=== PATIENT | male | born 1965 | race American Indian/Alaskan Native ===

== ENCOUNTER 2016-10-05 18:14 | Inpatient (IN) | payer OTHER ==
--- NOTE | 2016-10-05 18:29 | Emergency Department Report ---
Chief Complaint: Chest Pain Stated Complaint: HTN,CHEST PAIN,SOB Time Seen by Provider: 10/05/16 18:25 - HPI History of Present Illness: pt c/o chest pain x a couple of days ago, feels like a tightness PT also reports SOB x a couple of days PT states he has a hx of CHF. pt states he has been out of work so he does not have any of his medication. PT states he has been off of his medication since May - Review of Systems: - edema - orthopnea - Exam Physical Exam: PT looks well, non toxic. PT has steady gait gcs 15 pt is tachycardic MSE screening note: Focused history and physical exam performed. Due to findings the following was ordered: ekg, labs, xr ED Disposition for MSE Condition: Stable
[2016-10-05 19:10] LABS: Basophils % (Auto) 0.9 % (0.0-1.8); Eosinophils % (Auto) 2.5 % (0.0-4.3); Hematocrit 29.6 % (35.5-45.6); Hemoglobin 9.9 gm/dl (11.8-15.2); Mean Corpuscular HGB Conc 34 % (32-34); Mean Corpuscular Hemoglobin 29 pg (28-32); Mean Corpuscular Volume 85 fl (84-94); Platelet Count 343 K/mm3 (140-440); Red Blood Count 3.47 M/mm3 (3.65-5.03); Red Cell Distribution Width 14.1 % (13.2-15.2); White Blood Count 7.6 K/mm3 (4.5-11.0)
[2016-10-05 19:22] LABS: Albumin/Globulin Ratio 0.9 %; Bilirubin,Total 0.2 mg/dL (0.1-1.2); Calcium 7.6 mg/dL (8.4-10.2); Total Protein 6.3 g/dL (6.3-8.2)
[2016-10-05 19:24] LABS: INR 1.05 (0.87-1.13)
[2016-10-05 19:25] LABS: Partial Thromboplastin Time 29.2 Sec. (24.2-36.6)
[2016-10-05] MEDS ORDERED: APRESOLINE IV ONE (20:45)
[2016-10-05] MEDS ORDERED: NITRO-BID 2% TP ONE (20:46)
--- NOTE | 2016-10-05 20:51 | Emergency Department Report ---
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 The patient complained of mild chest discomfort and shortness of breath. Worse with exacerbation. He stated that since May 2016 he lost his job and hasn't been able to afford any of his medication and his blood pressure pills included. He describes chest discomfort as 3 out of 10 pressure-like without radiation exacerbating factors or alleviating factors. ED Past Medical Hx - Past Medical History Previous Medical History?: Yes Hx Hypertension: Yes Hx Congestive Heart Failure: Yes Additional medical history: High cholesterol - Surgical History Past Surgical History?: Yes Hx Appendectomy: Yes Additional Surgical History: tonsillectomy - Social History Smoking Status: Never Smoker Substance Use Type: Prescribed - Medications Home Medications: Home Medications Medication Instructions Recorded Confirmed Last Taken Type AtorvaSTATin [Lipitor] 80 mg PO QHS 10/05/16 10/05/16 Unknown History Carvedilol [Coreg] 25 mg PO BID 10/05/16 10/05/16 Unknown History Furosemide [Lasix TAB] 40 mg PO QDAY 10/05/16 10/05/16 Unknown History ISOSORBIDE MONOnitrate [Imdur ER] 30 mg PO DAILY 10/05/16 10/05/16 Unknown History Lisinopril [Zestril] 20 mg PO QDAY 10/05/16 10/05/16 Unknown History Pravastatin Sodium [Pravastatin] 40 mg PO QHS 10/05/16 10/05/16 Unknown History amLODIPine [Norvasc] 10 mg PO DAILY 10/05/16 10/05/16 Unknown History hydrALAZINE [Apresoline] 50 mg PO Q8HR 10/05/16 10/05/16 Unknown History ED Review of Systems ROS: Stated complaint: HTN,CHEST PAIN,SOB Other details as noted in HPI Comment: All other systems reviewed and negative Cardiovascular: chest pain, dyspnea on exertion Neurological: headache Physical Exam - Physical Exam Vital Signs: Vital Signs 10/05/16 10/05/16 18:27 20:42 Temperature 99.3 F Pulse Rate 116 H 100 H Respiratory 24 15 Rate Blood Pressure 256/160 Blood Pressure 251/170 [Left] O2 Sat by Pulse 100 98 Oximetry Physical Exam: vitals signs reviewed Gen. alert and oriented 3 in no distress Head atraumatic normocephalic Eyes PERR LA EOMI Chest regular rate and rhythm normal S1-S2 lungs clear bilaterally Abdomen soft nondistended Back no point tenderness paravertebral tenderness Neuro no focal deficit. Psych normal mood. ED Course Vital Signs 10/05/16 10/05/16 18:27 20:42 Temperature 99.3 F Pulse Rate 116 H 100 H Respiratory 24 15 Rate Blood Pressure 256/160 Blood Pressure 251/170 [Left] O2 Sat by Pulse 100 98 Oximetry ED Medical Decision Making - Lab Data Result diagrams: 10/05/16 18:45 10/05/16 18:45 Critical care attestation.: If time is entered above; I have spent that time in minutes in the direct care of this critically ill patient, excluding procedure time. ED Disposition Clinical Impression: Hypertensive crisis Disposition: DC-09 OP ADMIT IP TO THIS HOSP Is pt being admited?: Yes Does the pt Need Aspirin: No Condition: Stable Referrals: PRIMARY CARE [Primary Care Provider] - 3-5 Days
[2016-10-05] MEDS ORDERED: CATAPRES PO ONE (22:13)
[2016-10-05] MEDS ORDERED: MILK OF MAGNESIA PO PRN (22:22)
[2016-10-05] MEDS ORDERED: ZOFRAN IV PRN (22:22)
[2016-10-05] MEDS ORDERED: DULCOLAX PR PRN (22:22)
[2016-10-05] MEDS ORDERED: MORPHINE IV PRN (22:22)
[2016-10-05] MEDS ORDERED: TYLENOL PO PRN (22:22)
[2016-10-05] MEDS: CARDENE 50 MG in NACL 0.9% 250ML 230 ML IV SCH (23:07)
--- NOTE | 2016-10-05 23:55 | History and Physical Report ---
History of Present Illness Date of examination: 10/05/16 Date of admission: 10/05/16 22:22 History of present illness: 51-year-old man with a history of hypertension, CHF comes emergency room because his blood pressure was noted to be elevated during a work physical. He was sent to the emergency room for further evaluation. He ran out of his medications four months now. He complaining of chest pain in the epigastric area which he describes as chest tightness, intermittent lasting for a few minutes 2 weeks, intensity 5/10, no radiation any cannot identify exacerbating or relieving factors. He denies nausea vomiting, shortness breath, diaphoresis or palpitation. He had a stress test 2 years ago which was negative Patient denies cough, abdominal pain, hematochezia, dysuria, frequency, focal weakness, dysarthria, fever chills, polydipsia polyuria, hot or cold intolerance , easy bruisability, or rash or bleeding from mucosal membrane, rhinorrhea, epistaxis, earache, tinnitus, blurry vision, eye discharge, anxiety, depression. Other review of systems negative PAST SURGICAL HISTORY: Appendectomy SOCIAL HISTORY: Denies alcohol, tobacco, drugs FAMILY HISTORY: Hypertension Medications and Allergies Allergies Allergy/AdvReac Type Severity Reaction Status Date / Time No Known Allergies Allergy Unverified 10/05/16 18:27 Home Medications Medication Instructions Recorded Confirmed Last Taken Type AtorvaSTATin [Lipitor] 80 mg PO QHS 10/05/16 10/05/16 Unknown History Carvedilol [Coreg] 25 mg PO BID 10/05/16 10/05/16 Unknown History Furosemide [Lasix TAB] 40 mg PO QDAY 10/05/16 10/05/16 Unknown History ISOSORBIDE MONOnitrate [Imdur ER] 30 mg PO DAILY 10/05/16 10/05/16 Unknown History Lisinopril [Zestril] 20 mg PO QDAY 10/05/16 10/05/16 Unknown History Pravastatin Sodium [Pravastatin] 40 mg PO QHS 10/05/16 10/05/16 Unknown History amLODIPine [Norvasc] 10 mg PO DAILY 10/05/16 10/05/16 Unknown History hydrALAZINE [Apresoline] 50 mg PO Q8HR 10/05/16 10/05/16 Unknown History Active Meds: Active Medications Acetaminophen (Tylenol) 650 mg PO Q4H PRN PRN Reason: Pain MILD(1-3)/Fever >100.5/FRAIRE Bisacodyl (Dulcolax) 10 mg NM QDAY PRN PRN Reason: Constipation unrelieved by MOM Enoxaparin Sodium (Lovenox) 30 mg SUB-Q QDAY BRITT Nicardipine HCl 50 mg/ Sodium (Chloride) 250 mls @ 25 mls/hr IV TITR BRITT; 5 MG/ HR PRN Reason: Protocol Last Admin: 10/05/16 23:07 Dose: 5 mg/hr, 25 mls/hr Magnesium Hydroxide (Milk Of Magnesia) 30 ml PO Q4H PRN PRN Reason: Constipation Morphine Sulfate (Morphine) 2 mg IV Q4H PRN PRN Reason: Pain, Moderate (4-6) Ondansetron HCl (Zofran) 4 mg IV Q8H PRN PRN Reason: N/V unrelieved by Reglan Exam - Physical Exam Narrative exam: Gen. appearance: Patient lying in bed, no apparent distress HEENT: Normocephalic, atraumatic, pupils equally round and reactive to light, extraocular movement intact, and no sclericterus,. No JVD or thyromegaly or nodule,neck supple, no carotid bruit ,mucous membranes moist, no exudate or erythema Heart: S1, S2, regular rate and rhythm Lungs: Clear to auscultation bilaterally, breathing comfortable Abdomen: Positive bowel sounds, nontender, nondistended, no organomegaly Extremity: No edema, cyanosis, clubbing Skin: No rash, nodules, warm, dry Neuro: Oriented 3, cranial nerves II-12 intact, speech is fluent, motor and sensory intact - Constitutional Vitals: Temp Pulse Resp BP Pulse Ox 99.3 F 93 H 12 210/136 99 10/05/16 18:27 10/05/16 22:40 10/05/16 21:45 10/05/16 22:40 10/05/16 21:45 Results - Labs CBC & Chem 7: 10/05/16 18:45 10/05/16 18:45 - Imaging and Cardiology EKG: image reviewed Chest x-ray: image reviewed Assessment and Plan Hypertensive urgency, malignant Chest pain, rule out ACS CHF, stable Start Cardene drip Check cardiac enzymes, stress test Consult critical care, start aspirin, DVT prophylaxis
[2016-10-06 01:13] LABS: Creatine Kinase MB 5.4 ng/mL (0.0-4.0)
--- NOTE | 2016-10-06 07:39 | XRay Report ---
ROUTINE CHEST, TWO VIEWS: HISTORY: chest pain. The trachea, heart, mediastinal contour, lung yee and bony thorax are unremarkable. IMPRESSION: Unremarkable chest x-ray.
--- NOTE | 2016-10-06 08:48 | Progress Note ---
Assessment and Plan Assessment and plan: --Malignant hypertension / hypertensive emergency/ Cardene drip per protocol, will resume home antihypertensives, titrating DC Cardene drip Counseling done patient strongly advised to comply with medications and diet --Hypertensive cardiomyopathy; positive troponins Patient has multiple risk factors, consult cardiology for possible stress test versus heart Echocardiogram for LV function ejection fraction --Diastolic congestive heart failure; secondary to hypertensive cardiomyopathy Echocardiogram for LV function and ejection fraction, cardiology consult. --Hypertensive nephropathy; closely monitor renal function, avoid nephrotoxic medications, nephrology evaluation, gentle hydration --Dyslipidemia; continue lipid lowering medications Low-cholesterol diet --Medical noncompliance; counseling done patient strongly advised to adhere to medications diet and follow up with physician. Patient verbalized understanding --Social issues; case management for assistance with medications Plan of care discussed with the patient as well as his nurse Critical care time 31 minutes History Interval history: Patient seen and evaluated medical records reviewed Admitted with hypertensive emergency, on Cardene drip Denies chest pain or shortness of breath Alert awake Oriented 3 not in acute distress, vitals reviewed Hospitalist Physical - Constitutional Vitals: Temp Pulse Resp BP Pulse Ox 97.7 F 81 22 134/79 95 10/06/16 08:00 10/06/16 07:00 10/06/16 07:00 10/06/16 07:00 10/06/16 07:00 General appearance: Present: no acute distress, well-nourished, obese - EENT Eyes: Present: PERRL, EOM intact - Neck Neck: Present: supple, normal ROM - Respiratory Respiratory effort: normal Respiratory: bilateral: diminished, negative: rales, rhonchi, wheezing - Cardiovascular Rhythm: regular Heart Sounds: Present: S1 & S2 - Extremities Extremities: no ischemia, No edema - Abdominal General gastrointestinal: soft, non-tender, non-distended, normal bowel sounds - Integumentary Integumentary: Present: clear, warm - Psychiatric Psychiatric: appropriate mood/affect, cooperative - Neurologic Neurologic: CNII-XII intact, moves all extremities Results - Labs CBC & Chem 7: 10/05/16 18:45 10/05/16 18:45 Labs: Laboratory Last Values WBC 7.6 K/mm3 (4.5-11.0) 10/05/16 18:45 RBC 3.47 M/mm3 (3.65-5.03) L 10/05/16 18:45 Hgb 9.9 gm/dl (11.8-15.2) L 10/05/16 18:45 Hct 29.6 % (35.5-45.6) L 10/05/16 18:45 MCV 85 fl (84-94) 10/05/16 18:45 MCH 29 pg (28-32) 10/05/16 18:45 MCHC 34 % (32-34) 10/05/16 18:45 RDW 14.1 % (13.2-15.2) 10/05/16 18:45 Plt Count 343 K/mm3 (140-440) 10/05/16 18:45 Lymph % (Auto) 34.5 % (13.4-35.0) 10/05/16 18:45 [place] % (Auto) 4.3 % (0.0-7.3) 10/05/16 18:45 Eos % (Auto) 2.5 % (0.0-4.3) 10/05/16 18:45 Baso % (Auto) 0.9 % (0.0-1.8) 10/05/16 18:45 Lymph # 2.6 K/mm3 (1.2-5.4) 10/05/16 18:45 [place] # 0.3 K/mm3 (0.0-0.8) 10/05/16 18:45 Eos # 0.2 K/mm3 (0.0-0.4) 10/05/16 18:45 Baso # 0.1 K/mm3 (0.0-0.1) 10/05/16 18:45 Seg Neutrophils % 57.8 % (40.0-70.0) 10/05/16 18:45 Seg Neutrophils # 4.4 K/mm3 (1.8-7.7) 10/05/16 18:45 PT 13.6 Sec. (12.2-14.9) 10/05/16 18:45 INR 1.05 (0.87-1.13) 10/05/16 18:45 APTT 29.2 Sec. (24.2-36.6) 10/05/16 18:45 Sodium 144 mmol/L (137-145) 10/05/16 18:45 Potassium 4.0 mmol/L (3.6-5.0) 10/05/16 18:45 Chloride 106.0 mmol/L (98-107) 10/05/16 18:45 Carbon Dioxide 22 mmol/L (22-30) 10/05/16 18:45 Anion Gap 20 mmol/L 10/05/16 18:45 BUN 35 mg/dL (9-20) H 10/05/16 18:45 Creatinine 5.0 mg/dL (0.8-1.5) H 10/05/16 18:45 Estimated GFR 15 ml/min 10/05/16 18:45 BUN/Creatinine Ratio 7.00 % 10/05/16 18:45 Glucose 100 mg/dL (75-100) 10/05/16 18:45 Calcium 7.6 mg/dL (8.4-10.2) L 10/05/16 18:45 Total Bilirubin 0.20 mg/dL (0.1-1.2) 10/05/16 18:45 AST 12 units/L (5-40) 10/05/16 18:45 ALT 13 units/L (7-56) 10/05/16 18:45 Alkaline Phosphatase 79 units/L (35-129) 10/05/16 18:45 Total Creatine Kinase 761 units/L (55-170) H 10/05/16 23:35 CK-MB (CK-2) 5.4 ng/mL (0.0-4.0) H 10/05/16 23:35 CK-MB (CK-2) Rel Index 0.7 (0-4) 10/05/16 23:35 Troponin T 0.081 ng/mL (0.00-0.029) H 10/06/16 00:50 NT-Pro-B Natriuret Pep > 32254 pg/mL (0-900) H 10/05/16 18:45 Total Protein 6.3 g/dL (6.3-8.2) 10/05/16 18:45 Albumin 3.0 g/dL (3.9-5) L 10/05/16 18:45 Albumin/Globulin Ratio 0.9 % 10/05/16 18:45 Triglycerides 317 mg/dL (2-149) H 10/05/16 23:35 Cholesterol 421 mg/dL (50-199) H 10/05/16 23:35 LDL Cholesterol Direct 323 mg/dL (50-130) H 10/05/16 23:35 HDL Cholesterol 35 mg/dL (40-59) L 10/05/16 23:35 Cholesterol/HDL Ratio 12.02 % 10/05/16 23:35
[2016-10-06] MEDS ORDERED: NACL 0.9% 1000 ML 1,000 ML IV SCH (10:00)
[2016-10-06] MEDS ORDERED: ZESTRIL PO SCH (10:00)
[2016-10-06] MEDS: IMDUR PO SCH (10:33)
[2016-10-06] MEDS: COREG PO SCH ×2 (10:34→22:09)
[2016-10-06] MEDS: ASPIRIN PO SCH (10:34)
[2016-10-06] MEDS: LOVENOX SUB-Q SCH (10:35)
[2016-10-06] MEDS: NORVASC PO SCH (10:35)
--- NOTE | 2016-10-06 10:35 | Admit Criteria Form ---
Admission Criteria Documentation: HYPERTENSION Clinical Indications for Admission to Inpatient Care ( [place]/check or initial the applicable condition/criteria) Admission is indicated for 1 or more of the following(1)(2)(3)(4)(5)(6)(7)(8)(9) (10): [ ]I. Hypertensive emergency, with evidence of acute and progressing target organ disease as indicated by 1 or more of the following: [ ]a) Hypertensive encephalopathy (e.g., confusion, altered mental status) (11) [ ]b) Cerebral infarction [ ]c) Intracranial hemorrhage [ ]d) Myocardial ischemia or infarction [ ]e) Heart failure (eg. Pulmonary edema) [ ]f) Aortic dissection [ ]g) Increased creatinine (new) with reduction of more than 50% in estimated glomerular filtration rate from baseline [ ]h) Seizure [ ]i) Papilledema [ ]j) Retinal hemorrhage [ ]k) Microangiopathic hemolytic anemia [ ]l) Other significant finding secondary to hypertension [ ]II. Adrenergic or sympathomimetic crisis (e.g., severe hypertension due to pheochromocytoma crisis, cocaine, phencyclindine, or amphetamine intoxication, or clonidine withdrawal) [X]III. Severe hypertension (SBP greater than 180 mmHg or DBP greater than 110 mmHg or greater than the 95th percentile for age, gender, and height in pediatric patients) that cannot be controlled (e.g., to SBP less than 160 mmHg and DBP less than 100 mmHg in adults) by treatment with oral medication in emergency department or observation care (12) Extended stay beyond goal length of staymay be needed for(21)(22): [ ]a) Persistent hypertensive encephalopathy [ ]b) Continuation of pulmonary edema [ ]c) Recurring or persistent severe hypertension [ ]d) Target organ damage (eg, angina, stroke, aortic dissection) The original [employer] content created by [employer] has been revised. The portions of the content which have been revised are identified through the use of italic text or in bold, and [employer] has neither reviewed nor approved the modified material. All other unmodified content is copyright [employer]. Please see references footnoted in the original [employer] edition 2016 Admission Criteria Met: Yes
[2016-10-06] MEDS: CARDENE 50 MG in NACL 0.9% 250ML 230 ML IV SCH (10:38)
--- NOTE | 2016-10-06 12:43 | Consultation ---
History of Present Illness Consult date: 10/06/16 Requesting physician: PEACE SALAZAR Consult reason: abnormal cardiac enzymes, hypertension History of present illness: The pt is a 51 YO male with a past medical history significant for HTN. He is previously unknown to our practice. He presented with c/o high BP. 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 He was referred to ED for further eval/ management. Upon arrival to ED, his BP was noted to be 256/160, HR 116, and he was initiated on cardene gtt and tx to ICU. He reports that he has been experiencing ZHONG and orthopnea x the past several weeks, but these symptoms were not bothersome enough for him to seek medical attention. He has not been on any prescription medications since May due to financial issues. On evaluation, he denies any complaints. Past History Past Medical History: hypertension Medications and Allergies Allergies Allergy/AdvReac Type Severity Reaction Status Date / Time No Known Allergies Allergy Unverified 10/05/16 18:27 Home Medications Medication Instructions Recorded Confirmed Last Taken Type AtorvaSTATin [Lipitor] 80 mg PO QHS 10/05/16 10/05/16 Unknown History Carvedilol [Coreg] 25 mg PO BID 10/05/16 10/05/16 Unknown History Furosemide [Lasix TAB] 40 mg PO QDAY 10/05/16 10/05/16 Unknown History ISOSORBIDE MONOnitrate [Imdur ER] 30 mg PO DAILY 10/05/16 10/05/16 Unknown History Lisinopril [Zestril] 20 mg PO QDAY 10/05/16 10/05/16 Unknown History Pravastatin Sodium [Pravastatin] 40 mg PO QHS 10/05/16 10/05/16 Unknown History amLODIPine [Norvasc] 10 mg PO DAILY 10/05/16 10/05/16 Unknown History hydrALAZINE [Apresoline] 50 mg PO Q8HR 10/05/16 10/05/16 Unknown History Active Meds: Active Medications Acetaminophen (Tylenol) 650 mg PO Q4H PRN PRN Reason: Pain MILD(1-3)/Fever >100.5/FRAIRE Amlodipine Besylate (Norvasc) 10 mg PO DAILY BRITT Last Admin: 10/06/16 10:35 Dose: 10 mg Aspirin (Aspirin) 325 mg PO QDAY [facility] Last Admin: 10/06/16 10:34 Dose: 325 mg Atorvastatin Calcium (Lipitor) 80 mg PO QHS [facility] Bisacodyl (Dulcolax) 10 mg [place] QDAY PRN PRN Reason: Constipation unrelieved by MOM Carvedilol (Coreg) 25 mg PO BID [facility] Last Admin: 10/06/16 10:34 Dose: 25 mg Enoxaparin Sodium (Lovenox) 30 mg SUB-Q QDAY [facility] Last Admin: 10/06/16 10:35 Dose: 30 mg Hydralazine HCl (Apresoline) 50 mg PO Q8HR [facility] Nicardipine HCl 50 mg/ Sodium (Chloride) 250 mls @ 25 mls/hr IV TITR BRITT; 5 MG/ HR PRN Reason: Protocol Last Admin: 10/06/16 10:38 Dose: 5 mg/hr, 25 mls/hr Sodium Chloride (Nacl 0.9% 1000 Ml) 1,000 mls @ 75 mls/hr IV DIRECT [facility] Isosorbide Mononitrate (Imdur) 30 mg PO DAILY [facility] Last Admin: 10/06/16 10:33 Dose: 30 mg Magnesium Hydroxide (Milk Of Magnesia) 30 ml PO Q4H PRN PRN Reason: Constipation Morphine Sulfate (Morphine) 2 mg IV Q4H PRN PRN Reason: Pain, Moderate (4-6) Ondansetron HCl (Zofran) 4 mg IV Q8H PRN PRN Reason: N/V unrelieved by Reglan Review of Systems All systems: negative Constitutional: no weight loss, no weight gain, no fever, no chills, no sweats Cardiovascular: orthopnea, dyspnea on exertion, no chest pain Respiratory: no cough, no congestion, no wheezing, no pain on inspiration Gastrointestinal: no abdominal pain, no nausea, no vomiting, no diarrhea, no constipation, no change in bowel habits Integumentary: no rash, no sores, no wounds Neurological: no head injury, no headaches, no double vision, no loss of vision Psychiatric: no anxiety Physical Examination Last Vital Signs Temp 97.7 F 10/06/16 08:00 Pulse 85 10/06/16 10:35 Resp 17 10/06/16 10:00 BP 153/85 07/18/17 10:35 Pulse Ox 96 10/06/16 10:00 General appearance: no acute distress HEENT: Positive: PERRL, Normocephaly, Mucus Membranes Moist Neck: Positive: neck supple, trachea midline Cardiac: Positive: Reg Rate and Rhythm, S1/S2 Lungs: Positive: Normal Exam, clear to auscultation, Normal Breath Sounds, No Wheeze, Rales, Rhonchi Neuro: Positive: Grossly Intact, Cranial Nerve 2-12 Intact Abdomen: Positive: Unremarkable, Soft, Active Bowel Sounds. Negative: Tender Skin: Positive: Clear. Negative: Rash, Wound Musculoskeletal: No Fluid Collection, No Pain, Normal Range of Motion Extremities: Absent: edema Results 10/05/16 18:45 10/05/16 18:45 Cardiac Enzymes 10/05/16 Range/Units 23:35 CK-MB (CK-2) 5.4 H (0.0-4.0) ng/mL Lipids 10/05/16 Range/Units 23:35 Triglycerides 317 H (2-149) mg/dL Cholesterol 421 H (50-199) mg/dL HDL Cholesterol 35 L (40-59) mg/dL Cholesterol/HDL Ratio 12.02 % - Imaging and Cardiology Echo: pending EKG: report reviewed, image reviewed EKG interpretations - Telemetry EKG Rhythm: Sinus Rhythm - EKG Sinus rhythms and dysrhythmias: sinus tachycardia Repolarization changes or abnormalities: nonspecific abnormality, ST segment, and/or T wave Assessment and Plan Assessment: Uncontrolled HTN Elevated troponins - Flat; ECG for NAF; pt denies chest pain; currently nonspecific in setting of uncontrolled HTN and ARF. ARF Anemia Dyslipidemia / hypertriglyceridemia Noncompliance Plan: Obtain echo. Cont current PO cardiac regimen and wean cardene gtt as tolerated. Plan for lexiscan MPI stress test prior to discharge - could be done as early as tomorrow AM if pt is weaned off cardene gtt and with BPs WNL. Will make pt NPO after MN and for possible add on stress test in AM pending AM evaluation. Assessment and plan reviewed with pt at bedside. The patient has been seen in conjunction with Dr. Marshall who agrees with the assessment and plan of care.
[2016-10-06] MEDS: APRESOLINE PO SCH ×2 (13:53→22:09)
--- NOTE | 2016-10-06 18:51 | Consultation ---
History of Present Illness Consult date: 10/06/16 Requesting physician: PEACE SALAZAR Reason for consult: other (accelerated HTN) History of present illness: 51 yo with above. Hasn't taken BP meds in 4 months due to financial issues. Admitted w/ SBP > 200 and DBP > 100. Denies SOB, chest pain, wheezing, fevers, chills, cough. He does snore, and has never had a sleep study. Active Medications Acetaminophen (Tylenol) 650 mg PO Q4H PRN PRN Reason: Pain MILD(1-3)/Fever >100.5/FRAIRE Amlodipine Besylate (Norvasc) 10 mg PO DAILY [facility] Last Admin: 10/06/16 10:35 Dose: 10 mg Aspirin (Aspirin) 325 mg PO QDAY [facility] Last Admin: 10/06/16 10:34 Dose: 325 mg Atorvastatin Calcium (Lipitor) 80 mg PO QHS [facility] Bisacodyl (Dulcolax) 10 mg [place] QDAY PRN PRN Reason: Constipation unrelieved by MOM Carvedilol (Coreg) 25 mg PO BID [facility] Last Admin: 10/06/16 10:34 Dose: 25 mg Enoxaparin Sodium (Lovenox) 30 mg SUB-Q QDAY [facility] Last Admin: 10/06/16 10:35 Dose: 30 mg Hydralazine HCl (Apresoline) 50 mg PO Q8HR [facility] Last Admin: 10/06/16 13:53 Dose: 50 mg Nicardipine HCl 50 mg/ Sodium (Chloride) 250 mls @ 25 mls/hr IV TITR BRITT; 5 MG/ HR PRN Reason: Protocol Last Admin: 10/06/16 10:38 Dose: 5 mg/hr, 25 mls/hr Sodium Chloride (Nacl 0.9% 1000 Ml) 1,000 mls @ 75 mls/hr IV DIRECT [facility] Isosorbide Mononitrate (Imdur) 30 mg PO DAILY [facility] Last Admin: 10/06/16 10:33 Dose: 30 mg Magnesium Hydroxide (Milk Of Magnesia) 30 ml PO Q4H PRN PRN Reason: Constipation Morphine Sulfate (Morphine) 2 mg IV Q4H PRN PRN Reason: Pain, Moderate (4-6) Ondansetron HCl (Zofran) 4 mg IV Q8H PRN PRN Reason: N/V unrelieved by Reglan Past History Past Medical History: hypertension Social history: lives with family, full code. denies: smoking, alcohol abuse, prescription drug abuse, IV drug use Family history: other (No pulm issues reported) Medications and Allergies Allergies Allergy/AdvReac Type Severity Reaction Status Date / Time No Known Allergies Allergy Unverified 10/05/16 18:27 Home Medications Medication Instructions Recorded Confirmed Last Taken Type AtorvaSTATin [Lipitor] 80 mg PO QHS 10/05/16 10/05/16 Unknown History Carvedilol [Coreg] 25 mg PO BID 10/05/16 10/05/16 Unknown History Furosemide [Lasix TAB] 40 mg PO QDAY 10/05/16 10/05/16 Unknown History ISOSORBIDE MONOnitrate [Imdur ER] 30 mg PO DAILY 10/05/16 10/05/16 Unknown History Lisinopril [Zestril] 20 mg PO QDAY 10/05/16 10/05/16 Unknown History Pravastatin Sodium [Pravastatin] 40 mg PO QHS 10/05/16 10/05/16 Unknown History amLODIPine [Norvasc] 10 mg PO DAILY 10/05/16 10/05/16 Unknown History hydrALAZINE [Apresoline] 50 mg PO Q8HR 10/05/16 10/05/16 Unknown History Active Meds: Active Medications Acetaminophen (Tylenol) 650 mg PO Q4H PRN PRN Reason: Pain MILD(1-3)/Fever >100.5/FRAIRE Amlodipine Besylate (Norvasc) 10 mg PO DAILY [facility] Last Admin: 10/06/16 10:35 Dose: 10 mg Aspirin (Aspirin) 325 mg PO QDAY [facility] Last Admin: 10/06/16 10:34 Dose: 325 mg Atorvastatin Calcium (Lipitor) 80 mg PO QHS [facility] Bisacodyl (Dulcolax) 10 mg [place] QDAY PRN PRN Reason: Constipation unrelieved by MOM Carvedilol (Coreg) 25 mg PO BID [facility] Last Admin: 10/06/16 10:34 Dose: 25 mg Enoxaparin Sodium (Lovenox) 30 mg SUB-Q QDAY [facility] Last Admin: 10/06/16 10:35 Dose: 30 mg Hydralazine HCl (Apresoline) 50 mg PO Q8HR [facility] Last Admin: 10/06/16 13:53 Dose: 50 mg Nicardipine HCl 50 mg/ Sodium (Chloride) 250 mls @ 25 mls/hr IV TITR BRITT; 5 MG/ HR PRN Reason: Protocol Last Admin: 10/06/16 10:38 Dose: 5 mg/hr, 25 mls/hr Sodium Chloride (Nacl 0.9% 1000 Ml) 1,000 mls @ 75 mls/hr IV DIRECT [facility] Isosorbide Mononitrate (Imdur) 30 mg PO DAILY [facility] Last Admin: 10/06/16 10:33 Dose: 30 mg Magnesium Hydroxide (Milk Of Magnesia) 30 ml PO Q4H PRN PRN Reason: Constipation Morphine Sulfate (Morphine) 2 mg IV Q4H PRN PRN Reason: Pain, Moderate (4-6) Ondansetron HCl (Zofran) 4 mg IV Q8H PRN PRN Reason: N/V unrelieved by Reglan Review of Systems All systems: negative Physical Examination Vital signs: Vital Signs Temp Pulse Resp BP Pulse Ox 99.3 F 116 H 24 256/160 100 10/05/16 18:27 10/05/16 18:27 10/05/16 18:27 10/05/16 18:27 10/05/16 18:27 General appearance: no acute distress, alert, other (obese) Eyes: non-icteric ENT: oropharynx moist Neck: supple Effort: normal Ascultation: Bilateral: clear Cardiovascular: regular rate and rhythm (no mrg) Gastrointestinal: normoactive bowel sounds, soft, non-tender, non-distended Integumentary: normal Extremities: no cyanosis, no edema, pink and warm Musculoskeletal: no deformities normal mental status, non-focal exam, pupils equal and round, CN II-XII normal mood appropriate, affect normal Results - Laboratory Findings CBC and BMP: 10/05/16 18:45 10/05/16 18:45 PT/INR, D-dimer PT 13.6 Sec. (12.2-14.9) 10/05/16 18:45 INR 1.05 (0.87-1.13) 10/05/16 18:45 Abnormal lab findings: Abnormal Labs 10/05/16 10/05/16 10/06/16 23:35 23:35 00:50 Total Creatine Kinase 761 H CK-MB (CK-2) 5.4 H Troponin T 0.085 H 0.081 H Triglycerides 317 H Cholesterol 421 H LDL Cholesterol Direct 323 H HDL Cholesterol 35 L - Diagnostic Findings Chest x-ray: report reviewed, image reviewed (clear lungs) Assessment and Plan Imp: 1. Accelerated HTN 2. MANUEL vs. CKD 3. Normocytic anemia, ? anemia of CKD 4. Obesity, non-morbid 5. Pulm HTN 2/2 #1 +/- GABBY 6. R/o GABBY Rec: 1. Resume home PO meds 2. Wean off cardene drip 3. Stop IVFs 4. Consider renal consult 5. Recommend outpatient PSG Plan of care reviewed w/ patient, he understands/agrees
[2016-10-07 04:58] LABS: BUN/Creatinine Ratio 7.55; Calcium 7.2 mg/dL (8.4-10.2); Chloride 104.1 mmol/L (98-107); Potassium 4.3 mmol/L (3.6-5.0)
[2016-10-07] MEDS: APRESOLINE PO SCH ×3 (06:24→22:09)
[2016-10-07] MEDS ORDERED: APRESOLINE IV PRN (08:00)
[2016-10-07] MEDS: IMDUR PO SCH (09:17)
[2016-10-07] MEDS: ASPIRIN PO SCH (09:18)
[2016-10-07] MEDS: NORVASC PO SCH (09:18)
[2016-10-07] MEDS: LOVENOX SUB-Q SCH (09:18)
[2016-10-07] MEDS ORDERED: LEXISCAN IV ONE (12:00)
[2016-10-07] MEDS ORDERED: PNEUMOVAX 23 IM ONE (12:00)
--- NOTE | 2016-10-07 12:38 | Progress Note ---
Assessment and Plan Assessment: Uncontrolled HTN - improving. Elevated troponins - Flat; ECG for NAF; pt denies chest pain; currently nonspecific in setting of uncontrolled HTN and ARF. ARF Anemia Dyslipidemia / hypertriglyceridemia Pulmonary HTN Noncompliance Plan: Echo reviewed - EF 50 - 55%, mild LVH, abnormal diastolic function, RVSP 55mmHg , mild MR, mild TR. Cont current cardiac regimen. Proceed with lexiscan MPI stress test today. Await findings. Await nephrology consultation. Assessment and plan reviewed with pt at bedside. The patient has been seen in conjunction with Dr. Marshall who agrees with the assessment and plan of care. Subjective Date of service: 10/07/16 Principal diagnosis: HTN Interval history: Pt resting comfortably, no complaints. Weaned off cardene gtt yesterday evening. VSS. Has been NPO since [place]. Objective Last Vital Signs Temp 97.8 F 10/07/16 08:00 Pulse 74 10/07/16 09:18 Resp 22 10/07/16 09:00 BP 165/103 10/07/16 09:18 Pulse Ox 100 10/07/16 09:00 - Physical Examination HEENT: Positive: PERRL, Normocephaly, Mucus Membranes Moist Neck: Positive: neck supple, trachea midline Cardiac: Positive: Reg Rate and Rhythm, S1/S2 Lungs: Positive: clear to auscultation Neuro: Positive: Grossly Intact, Cranial Nerve 2-12 Intact Abdomen: Positive: Unremarkable, Soft, Active Bowel Sounds. Negative: Tender Skin: Positive: Clear. Negative: Rash, Wound Musculoskeletal: No Fluid Collection, No Pain, Normal Range of Motion Extremities: Absent: edema - Labs and Meds Comprehensive Metabolic Panel 10/07/16 Range/Units 04:03 Sodium 141 (137-145) mmol/L Potassium 4.3 (3.6-5.0) mmol/L Chloride 104.1 (98-107) mmol/L Carbon Dioxide 22 (22-30) mmol/L BUN 37 H (9-20) mg/dL Creatinine 4.9 H (0.8-1.5) mg/dL Glucose 101 H (75-100) mg/dL Calcium 7.2 L (8.4-10.2) mg/dL - Imaging and Cardiology EKG: image reviewed Echo: pending - EKG Sinus rhythms and dysrhythmias: sinus tachycardia Repolarization changes or abnormalities: nonspecific abnormality, ST segment, and/or T wave
--- NOTE | 2016-10-07 13:02 | Event Note ---
Date: 10/07/16 Pt. off floor this morning for procedure. If transferred to the floor will sign off, but o/w can f/u on 10/08/16. See prior note for recs.
[2016-10-07] MEDS: COREG PO SCH ×2 (15:49→22:10)
--- NOTE | 2016-10-07 16:06 | Progress Note ---
Assessment and Plan Assessment and plan: --Malignant hypertension / hypertensive emergency/ Cardene drip per protocol, blood pressure is reasonably controlled, titrate and DC Cardene drip Continue current antihypertensive medications --Hypertensive cardiomyopathy; positive troponins Schedule for stress test, follow echocardiogram, and management --Diastolic congestive heart failure; secondary to hypertensive cardiomyopathy Echocardiogram , LV function and ejection fraction 50-55%, cardiology following --Hypertensive nephropathy; closely monitor renal function, avoid nephrotoxic medications, Pending nephrology evaluation, gentle hydration --Dyslipidemia; continue lipid lowering medications, Low-cholesterol diet --Medical noncompliance; counseling done patient strongly advised to adhere to medications diet and follow up with physician. Patient verbalized understanding --Social issues; case management for assistance with medications Plan of care discussed with the patient as well as his nurse History Interval history: Patient seen and evaluated in his room this morning medical records reviewed Patient was scheduled for stress test per cardiology Denies chest pain or shortness of breath Blood pressures are reasonable level, titrate and DC Cardene drip Hospitalist Physical - Constitutional Vitals: Temp Pulse Resp BP Pulse Ox 97.8 F 83 24 149/94 97 10/07/16 08:00 10/07/16 15:50 10/07/16 14:01 10/07/16 15:50 10/07/16 14:01 General appearance: Present: no acute distress, well-nourished, obese - EENT Eyes: Present: PERRL, EOM intact - Neck Neck: Present: supple, normal ROM - Respiratory Respiratory effort: normal Respiratory: bilateral: diminished, negative: rales, rhonchi, wheezing - Cardiovascular Rhythm: regular Heart Sounds: Present: S1 & S2 - Extremities Extremities: no ischemia, pulses intact, No edema - Abdominal General gastrointestinal: soft, non-tender, non-distended, normal bowel sounds - Integumentary Integumentary: Present: clear, warm - Psychiatric Psychiatric: appropriate mood/affect, cooperative - Neurologic Neurologic: CNII-XII intact, moves all extremities Results - Labs CBC & Chem 7: 10/05/16 18:45 10/07/16 04:03 Labs: Laboratory Last Values WBC 7.6 K/mm3 (4.5-11.0) 10/05/16 18:45 RBC 3.47 M/mm3 (3.65-5.03) L 10/05/16 18:45 Hgb 9.9 gm/dl (11.8-15.2) L 10/05/16 18:45 Hct 29.6 % (35.5-45.6) L 10/05/16 18:45 MCV 85 fl (84-94) 10/05/16 18:45 MCH 29 pg (28-32) 10/05/16 18:45 MCHC 34 % (32-34) 10/05/16 18:45 RDW 14.1 % (13.2-15.2) 10/05/16 18:45 Plt Count 343 K/mm3 (140-440) 10/05/16 18:45 Lymph % (Auto) 34.5 % (13.4-35.0) 10/05/16 18:45 [place] % (Auto) 4.3 % (0.0-7.3) 10/05/16 18:45 Eos % (Auto) 2.5 % (0.0-4.3) 10/05/16 18:45 Baso % (Auto) 0.9 % (0.0-1.8) 10/05/16 18:45 Lymph # 2.6 K/mm3 (1.2-5.4) 10/05/16 18:45 [place] # 0.3 K/mm3 (0.0-0.8) 10/05/16 18:45 Eos # 0.2 K/mm3 (0.0-0.4) 10/05/16 18:45 Baso # 0.1 K/mm3 (0.0-0.1) 10/05/16 18:45 Seg Neutrophils % 57.8 % (40.0-70.0) 10/05/16 18:45 Seg Neutrophils # 4.4 K/mm3 (1.8-7.7) 10/05/16 18:45 PT 13.6 Sec. (12.2-14.9) 10/05/16 18:45 INR 1.05 (0.87-1.13) 10/05/16 18:45 APTT 29.2 Sec. (24.2-36.6) 10/05/16 18:45 Sodium 141 mmol/L (137-145) 10/07/16 04:03 Potassium 4.3 mmol/L (3.6-5.0) 10/07/16 04:03 Chloride 104.1 mmol/L (98-107) 10/07/16 04:03 Carbon Dioxide 22 mmol/L (22-30) 10/07/16 04:03 Anion Gap 19 mmol/L 10/07/16 04:03 BUN 37 mg/dL (9-20) H 10/07/16 04:03 Creatinine 4.9 mg/dL (0.8-1.5) H 10/07/16 04:03 Estimated GFR 15 ml/min 10/07/16 04:03 BUN/Creatinine Ratio 7.55 % 10/07/16 04:03 Glucose 101 mg/dL (75-100) H 10/07/16 04:03 Calcium 7.2 mg/dL (8.4-10.2) L 10/07/16 04:03 Total Bilirubin 0.20 mg/dL (0.1-1.2) 10/05/16 18:45 AST 12 units/L (5-40) 10/05/16 18:45 ALT 13 units/L (7-56) 10/05/16 18:45 Alkaline Phosphatase 79 units/L (35-129) 10/05/16 18:45 Total Creatine Kinase 761 units/L (55-170) H 10/05/16 23:35 CK-MB (CK-2) 5.4 ng/mL (0.0-4.0) H 10/05/16 23:35 CK-MB (CK-2) Rel Index 0.7 (0-4) 10/05/16 23:35 Troponin T 0.081 ng/mL (0.00-0.029) H 10/06/16 00:50 NT-Pro-B Natriuret Pep > 67917 pg/mL (0-900) H 10/05/16 18:45 Total Protein 6.3 g/dL (6.3-8.2) 10/05/16 18:45 Albumin 3.0 g/dL (3.9-5) L 10/05/16 18:45 Albumin/Globulin Ratio 0.9 % 10/05/16 18:45 Triglycerides 317 mg/dL (2-149) H 10/05/16 23:35 Cholesterol 421 mg/dL (50-199) H 10/05/16 23:35 LDL Cholesterol Direct 323 mg/dL (50-130) H 10/05/16 23:35 HDL Cholesterol 35 mg/dL (40-59) L 10/05/16 23:35 Cholesterol/HDL Ratio 12.02 % 10/05/16 23:35
--- NOTE | 2016-10-07 16:15 | Event Note ---
Date: 10/07/16 Lexiscan MPI: - Medium sized moderately intense reversible inferior wall perfusion defect - EF 44% Findings reviewed with pt. ARF precludes coronary angiography for definitive diagnosis at this time. Cont current anti-ischemic regimen, including ASA, statin, coreg, imdur. Await nephrology consultation. Zan CAPUTO NP / DR. BLAND
--- NOTE | 2016-10-07 16:38 | Event Note ---
Date: 10/07/16 Patient had a stress test which was abnormal- - Medium sized moderately intense reversible inferior wall perfusion defect - EF 44% Cardiology planning left heart catheterization, awaiting nephrology evaluation and recommendations Continue current management Patient can be transferred out of ICU to telemetry Plan of care discussed with the patient and his nurse
--- NOTE | 2016-10-07 16:38 | Consultation ---
History of Present Illness - Reason for Consult Consult date: 10/07/16 acute renal failure, chronic renal failure Requesting physician: GRETCHEN RIVERS - History of Present Illness 51-year-old man with a history of hypertension, CHF comes emergency room because his blood pressure was noted to be elevated during a work physical. He was sent to the emergency room for further evaluation. He ran out of his medications four months now. He complaining of chest pain in the epigastric area which he describes as chest tightness, intermittent lasting for a few minutes 2 weeks, intensity 5/10, no radiation any cannot identify exacerbating or relieving factors. He denies nausea vomiting, shortness breath, diaphoresis or palpitation. He had a stress test 2 years ago which was negative Patient denies cough, abdominal pain, hematochezia, dysuria, frequency, focal weakness, dysarthria, fever chills, polydipsia polyuria, hot or cold intolerance , easy bruisability, or rash or bleeding from mucosal membrane, rhinorrhea, epistaxis, earache, tinnitus, blurry vision, eye discharge, anxiety, depression. Other review of systems negative Past History Past Medical History: hypertension, renal failure Social history: lives with family, full code. denies: smoking, alcohol abuse, prescription drug abuse, IV drug use Family history: hypertension, other (No pulm issues reported) Medications and Allergies Allergies Allergy/AdvReac Type Severity Reaction Status Date / Time No Known Allergies Allergy Unverified 10/05/16 18:27 Home Medications Medication Instructions Recorded Confirmed Last Taken Type AtorvaSTATin [Lipitor] 80 mg PO QHS 10/05/16 10/05/16 Unknown History Carvedilol [Coreg] 25 mg PO BID 10/05/16 10/05/16 Unknown History Furosemide [Lasix TAB] 40 mg PO QDAY 10/05/16 10/05/16 Unknown History ISOSORBIDE MONOnitrate [Imdur ER] 30 mg PO DAILY 10/05/16 10/05/16 Unknown History Lisinopril [Zestril] 20 mg PO QDAY 10/05/16 10/05/16 Unknown History Pravastatin Sodium [Pravastatin] 40 mg PO QHS 10/05/16 10/05/16 Unknown History amLODIPine [Norvasc] 10 mg PO DAILY 10/05/16 10/05/16 Unknown History hydrALAZINE [Apresoline] 50 mg PO Q8HR 10/05/16 10/05/16 Unknown History Active Meds: Active Medications Acetaminophen (Tylenol) 650 mg PO Q4H PRN PRN Reason: Pain MILD(1-3)/Fever >100.5/FRAIRE Amlodipine Besylate (Norvasc) 10 mg PO DAILY [facility] Last Admin: 10/07/16 09:18 Dose: 10 mg Aspirin (Aspirin) 325 mg PO QDAY [facility] Last Admin: 10/07/16 09:18 Dose: 325 mg Atorvastatin Calcium (Lipitor) 80 mg PO QHS [facility] Last Admin: 10/06/16 22:08 Dose: 80 mg Bisacodyl (Dulcolax) 10 mg [place] QDAY PRN PRN Reason: Constipation unrelieved by MOM Carvedilol (Coreg) 25 mg PO BID [facility] Last Admin: 10/07/16 15:49 Dose: 25 mg Enoxaparin Sodium (Lovenox) 30 mg SUB-Q QDAY [facility] Last Admin: 10/07/16 09:18 Dose: 30 mg Hydralazine HCl (Apresoline) 50 mg PO Q8HR [facility] Last Admin: 10/07/16 15:50 Dose: 50 mg Hydralazine HCl (Apresoline) 10 mg IV Q4HR PRN PRN Reason: FOR SBP > 160 AND/OR DBP > 90 Isosorbide Mononitrate (Imdur) 30 mg PO DAILY [facility] Last Admin: 10/07/16 09:17 Dose: 30 mg Magnesium Hydroxide (Milk Of Magnesia) 30 ml PO Q4H PRN PRN Reason: Constipation Morphine Sulfate (Morphine) 2 mg IV Q4H PRN PRN Reason: Pain, Moderate (4-6) Ondansetron HCl (Zofran) 4 mg IV Q8H PRN PRN Reason: N/V unrelieved by Reglan Exam - Vital Signs Vital signs: Vital Signs Temp Pulse Resp BP Pulse Ox 99.3 F 116 H 24 256/160 100 10/05/16 18:27 10/05/16 18:27 10/05/16 18:27 10/05/16 18:27 10/05/16 18:27 - Physical Exam Narrative exam: Gen. appearance: Patient lying in bed, no apparent distress HEENT: Normocephalic, atraumatic, pupils equally round and reactive to light, extraocular movement intact, and no sclericterus,. No JVD or thyromegaly or nodule,neck supple, no carotid bruit ,mucous membranes moist, no exudate or erythema Heart: S1, S2, regular rate and rhythm Lungs: Clear to auscultation bilaterally, breathing comfortable Abdomen: Positive bowel sounds, nontender, nondistended, no organomegaly Extremity: No edema, cyanosis, clubbing Skin: No rash, nodules, warm, dry Neuro: Oriented 3, cranial nerves II-12 intact, speech is fluent, motor and sensory intact Results - Lab Results 10/05/16 18:45 10/07/16 04:03 Most recent lab results Calcium 7.2 mg/dL (8.4-10.2) L 10/07/16 04:03 Assessment and Plan Impression: * MANUEL on CKD * HTN * CHF * nstemi/chest pain * medical noncompliance Plan: * cr is stable, follow up renal us * may have adv CKD due to untreated HTN * strict i/os * daily lytes * avoid nephrotoxins * stress test noted, if patient need LHC he will be high risk for LUIS EDUARDO, but will need to proceed with contrasted study once cr is stable. Explained to patient and willing to proceed if needed
[2016-10-08] MEDS: APRESOLINE PO SCH (05:28)
[2016-10-08 05:57] LABS: BUN/Creatinine Ratio 8.4; Calcium 7.4 mg/dL (8.4-10.2); Chloride 105.3 mmol/L (98-107); Potassium 4.1 mmol/L (3.6-5.0)
[2016-10-08 08:52] VITALS: BP 162/96
--- NOTE | 2016-10-08 09:31 | Progress Note ---
Subjective Principal diagnosis: HTN Interval history: Patient was seen around 920 in the morning Patient was seen today for follow-up on multiple renal related issues Events of this hospitalization noted He is more aware about the severity of renal failure Vitals labs intake output and medications were reviewed Social history: Reviewed Family history: Reviewed Allergy: Reviewed Physical examination Vitals: Reviewed HEENT: Oral mucosa moist Neck: Supple no JVD Chest: Bilateral clear to auscultation no crackles rales or wheezes Heart: Regular rate and rhythm S1 and S2 heard Abdomen: Soft nontender no voluntary guarding rigidity rebound Extremity: Minimal edema dry skin Dermatology; dry skin no edema Neurological alert awake Assessment and plan Renal failure in a patient is 51-year-old and has some risk factors for chronic kidney disease/patient was admitted with creatinine of 5.0 currently better Creatinine appears to be stable to better at this time patient does not have any uremic symptoms Electrolytes okay no evidence of acidosis Mild anemia currently hemoglobin is around 9.9 Renal ultrasonogram was also currently not back Will need to make a follow-up appointment office upon discharge Educated the patient not to use any form of non-steroidal drugs, please avoid any form of diabetics BOBIB inhibitors angiotensin receptor aleida Blood pressure needs to be consistently under 140 systolic Given the information to make an appointment in the office, patient is to be seen next week on Wednesday, discussed with internal medicine service pending Objective - Vital Signs Vital signs: Vital Signs - 12hr 10/07/16 10/07/16 10/07/16 22:00 22:09 22:10 Temperature Pulse Rate 76 76 76 Pulse Rate [ Left Dorsalis Pedis] Pulse Rate [ Left Radial] Respiratory Rate Blood Pressure 165/92 165/92 Blood Pressure [Right Arm] O2 Sat by Pulse Oximetry 10/08/16 10/08/16 10/08/16 00:00 04:00 05:28 Temperature 97.6 F 98.1 F Pulse Rate 69 Pulse Rate [ 82 69 Left Dorsalis Pedis] Pulse Rate [ 82 69 Left Radial] Respiratory 16 18 Rate Blood Pressure 136/75 Blood Pressure 172/98 136/75 [Right Arm] O2 Sat by Pulse 99 98 Oximetry 10/08/16 07:15 Temperature 98.3 F Pulse Rate Pulse Rate [ 79 Left Dorsalis Pedis] Pulse Rate [ 79 Left Radial] Respiratory 20 Rate Blood Pressure Blood Pressure 162/96 [Right Arm] O2 Sat by Pulse 100 Oximetry - Lab 10/05/16 18:45 10/08/16 04:00 Most recent lab results Calcium 7.4 mg/dL (8.4-10.2) L 10/08/16 04:00
--- NOTE | 2016-10-08 09:41 | Progress Note ---
<WILLA CAPUTO - Last Filed: 10/08/16 10:11> Assessment and Plan Assessment: Uncontrolled HTN - improving. Elevated troponins - Flat; ECG for NAF; pt denies chest pain; AMI ruled out. ARF Abnormal lexiscan MPI stress test Anemia Dyslipidemia / hypertriglyceridemia Pulmonary HTN Noncompliance Plan: S/p stress test yesterday which showed medium sized moderately intense reversible inferior wall perfusion defect, EF 44%. ARF precludes coronary angiography for definitive diagnosis at this time. Given that pt remains asymptomatic and denies any cardiac complaints, cont current anti-ischemic regimen, including ASA, statin, coreg, imdur, and consider LHC as OP once renal function stabilizes. Pt is agreeable to this plan. Currently stable cardiac status. Pt may discharge home from cardiology standpoint. Follow up in our [place] office with Snow Rosario NP, on 10/14/2016 @ 1:30PM. Assessment and plan reviewed with pt at bedside. The patient has been seen in conjunction with Dr. Bland who agrees with the assessment and plan of care. Subjective Date of service: 10/08/16 Principal diagnosis: HTN Interval history: Pt resting comfortably, no complaints. VSS. Objective Last Vital Signs Temp 98.3 F 10/08/16 07:15 Pulse 79 10/08/16 07:15 Resp 20 10/08/16 07:15 BP 162/96 10/08/16 07:15 Pulse Ox 100 10/08/16 07:15 - Physical Examination General: Appears Well, No Apparent Distress HEENT: Positive: PERRL, Normocephaly, Mucus Membranes Moist Neck: Positive: neck supple, trachea midline Cardiac: Positive: Reg Rate and Rhythm, S1/S2 Lungs: Positive: clear to auscultation Neuro: Positive: Grossly Intact, Cranial Nerve 2-12 Intact Abdomen: Positive: Unremarkable, Soft, Active Bowel Sounds. Negative: Tender Skin: Positive: Clear. Negative: Rash, Wound Musculoskeletal: No Fluid Collection, No Pain, Normal Range of Motion Extremities: Absent: edema - Labs and Meds Comprehensive Metabolic Panel 10/08/16 Range/Units 04:00 Sodium 140 (137-145) mmol/L Potassium 4.1 (3.6-5.0) mmol/L Chloride 105.3 (98-107) mmol/L Carbon Dioxide 22 (22-30) mmol/L BUN 37 H (9-20) mg/dL Creatinine 4.4 H (0.8-1.5) mg/dL Glucose 102 H (75-100) mg/dL Calcium 7.4 L (8.4-10.2) mg/dL - Imaging and Cardiology EKG: image reviewed Echo: report reviewed - Telemetry EKG Rhythm: Sinus Rhythm - EKG Sinus rhythms and dysrhythmias: sinus tachycardia Repolarization changes or abnormalities: nonspecific abnormality, ST segment, and/or T wave <KATIA BLAND R - Last Filed: 10/08/16 15:07> Assessment and Plan cardiac enz were elevated but there were no acute ecg changes. pt not having chest pain. presentation not consistent with acute coronary syndrome. agree with medical mgt and risk factor intervention Objective Vital Signs Temp Pulse Pulse Pulse Resp Resp BP 10/08/16 10:00 78 78 18 20 10/08/16 07:15 98.3 F 79 79 20 10/08/16 05:28 69 136/75 10/08/16 04:00 98.1 F 69 69 18 10/08/16 00:00 97.6 F 82 82 16 10/07/16 22:10 76 165/92 10/07/16 22:09 76 165/92 10/07/16 22:00 76 10/07/16 20:00 98.2 F 19 165/92 10/07/16 18:00 80 19 140/83 10/07/16 17:00 85 19 166/104 10/07/16 16:00 97.9 F 75 19 150/96 10/07/16 15:50 83 149/94 10/07/16 15:49 83 149/94 BP Pulse Ox 10/08/16 10:00 100 10/08/16 07:15 162/96 100 10/08/16 05:28 10/08/16 04:00 136/75 98 10/08/16 00:00 172/98 99 10/07/16 22:10 10/07/16 22:09 10/07/16 22:00 10/07/16 20:00 100 10/07/16 18:00 99 10/07/16 17:00 100 10/07/16 16:00 99 10/07/16 15:50 10/07/16 15:49 - Labs and Meds Comprehensive Metabolic Panel 10/08/16 Range/Units 04:00 Sodium 140 (137-145) mmol/L Potassium 4.1 (3.6-5.0) mmol/L Chloride 105.3 (98-107) mmol/L Carbon Dioxide 22 (22-30) mmol/L BUN 37 H (9-20) mg/dL Creatinine 4.4 H (0.8-1.5) mg/dL Glucose 102 H (75-100) mg/dL Calcium 7.4 L (8.4-10.2) mg/dL
[2016-10-08] MEDS: IMDUR PO SCH (09:52)
[2016-10-08] MEDS: NORVASC PO SCH (09:53)
[2016-10-08] MEDS: COREG PO SCH (09:53)
[2016-10-08] MEDS: ASPIRIN PO SCH (09:53)
[2016-10-08] MEDS: LOVENOX SUB-Q SCH (09:54)
--- NOTE | 2016-10-08 11:00 | Discharge Summary ---
Providers - Providers Date of Admission: 10/05/16 22:22 Date of discharge: 10/08/16 Attending physician: PEACE SALAZAR 10/06/16 00:33 Consult to Physician [CONS] Routine Consulting Provider: MARICHUY GAR Reason For Exam: cc Place consult to:: Notified:: Phone number called:: [phone] Was contact made?: Yes If yes, spoke with:: Answering service Time called:: 09:00 10/06/16 03:13 Consult to Case Management [CONS] Routine Services Needed at Discharge: Other Notified:: no Additional Physician Instructions: Pt unemployed and unable to obtain medications. 10/06/16 08:43 Consult to Physician [CONS] Routine Consulting Provider: ANA AMADOR Reason For Exam: positive cardiac enzymes/malignant hypertension Place consult to:: Dr.Barry Bland Notified:: [id number] Phone number called:: [phone] Was contact made?: Yes If yes, spoke with:: spoke with Time called:: 08:43 10/06/16 09:09 Consult to Physician [CONS] Routine Consulting Provider: RED HENRY Reason For Exam: ac vs ac on chronic kid dis/htn nephropathy Place consult to:: Dr Henry's Office Notified:: Alena Phone number called:: [phone] Was contact made?: Yes If yes, spoke with:: Alena Time called:: 10:48 Primary care physician: [facility] Hospitalization Reason for admission: uncontrolled blood pressures /chest pain Condition: Stable Pertinent studies: Chest x-ray; normal study Nuclear stress test :medium-sized moderately intense reversible inferior wall perfusion defect Ejection fraction 44%, recommend left heart catheterization However in view of acute renal failure, await nephrology clearance Echocardiogram; mild concentric LVH, ejection fraction 50-55%, abnormal diastolic function Renal ultrasound; no significant findings except for incidental right pleural effusion Hospital course: 51-year-old obese -Filipino male patient with no significant past medical history of hypertension and congestive heart failure noncompliant with medications was admitted through emergency room because of 50 high blood pressures during a work physical Patient was initially evaluated, peak blood pressure in the emergency room was 256/160 Admitted to ICU on Cardene drip, also noted to have positive cardiac enzymes secondary to hypertensive cardiomyopathy as well as acute renal failure Patient's blood pressures first closely monitored, oral antihypertensives added , Cardene drip titrated and discontinued Patient was evaluated by jewish thought professor, underwent stress test which was abnormal , cardiology recommended heart However in view of acute renal failure, awaiting renal function to improve and salmon troll fisher to clear for the procedure Patient was also seen by salmon troll fisher, medications were adjusted, very mild improvement of renal function Today he is comfortable in bed denies any chest pain or shortness of breath, alert awake oriented 3 not in acute distress Vital signs reviewed, blood pressure is reasonably controlled, cardiology cleared the patient for discharge and follow up with them in the office for further evaluation as outpatient Discussed with nephrology advised to follow with them in a couple of days for further evaluation Patient is hemodynamically and clinically stable for discharge and does not need any further acute inpatient care at this time. patient strongly advised to comply with medications and diet and follow-up visits, patient verbalized understanding Final diagnosis; Hypertensive emergency requiring Cardene drip Uncontrolled blood pressures[now stable on medications] Acute renal failure Hypertensive nephropathy Hypertensive cardiomyopathy Abnormal stress test Coronary artery disease Dyslipidemia Medical noncompliance Disposition: DC-01 TO HOME OR SELFCARE Time spent for discharge: 35 Core Measure Documentation - Palliative Care Palliative Care/ Comfort Measures: Not Applicable - Core Measures Any of the following diagnoses?: none Exam - Constitutional Vitals: Temp Pulse Resp BP Pulse Ox 98.3 F 79 20 162/96 100 10/08/16 07:15 10/08/16 07:15 10/08/16 07:15 10/08/16 07:15 10/08/16 07:15 General appearance: Present: no acute distress, well-nourished - EENT Eyes: Present: PERRL, EOM intact - Neck Neck: Present: supple - Respiratory Respiratory effort: normal Respiratory: bilateral: diminished, negative: rales, rhonchi, wheezing - Cardiovascular Rhythm: regular Heart Sounds: Present: S1 & S2 - Extremities Extremities: no ischemia, pulses intact, pulses symmetrical Peripheral Pulses: within normal limits - Abdominal General gastrointestinal: Present: soft, non-tender, non-distended, normal bowel sounds - Integumentary Integumentary: Present: clear, warm - Musculoskeletal Musculoskeletal: strength equal bilaterally - Psychiatric Psychiatric: appropriate mood/affect, cooperative - Neurologic Neurologic: CNII-XII intact, moves all extremities Plan Activity: no restrictions Diet: low salt, renal, other (cardiac diet) Additional Instructions: Follow up in our [place] office with Snow Rosario NP, on 10/14/2016 @ 1:30PM. Call Nep[facility] office on [phone] for appointment to see Dr Henry on Wednesday10/12/16 Follow up with: KATIA BLAND MD [Staff Physician] - 10/14/16 1:30 pm PRIMARY MD CELINE [Primary Care Provider] - 3-5 Days RED HENRY MD [Staff Physician] - 7 Days Prescriptions: amLODIPine [Norvasc] 10 mg PO DAILY #30 tablet Aspirin [Aspirin TAB] 325 mg PO QDAY #30 tablet AtorvaSTATin [Lipitor] 80 mg PO QHS #30 tablet Carvedilol [Coreg] 25 mg PO BID #60 tablet hydrALAZINE [Apresoline TAB] 50 mg PO Q8HR #90 tablet ISOSORBIDE MONOnitrate [Imdur ER] 30 mg PO DAILY #30 tablet
--- NOTE | 2016-10-08 14:51 | Ultrasound Report ---
Renal ultrasound. History: Renal failure. Findings: The kidneys are normal in size and configuration with no evidence of mass or hydronephrosis. The right kidney measures 10.3 cm in longitudinal axis and the left kidney measures 9.4 cm longitudinally. The cortex is normal in thickness. Images of the urinary bladder reveal no significant findings. A right pleural effusion is incidentally noted. Impression: No significant findings except for incidental right pleural effusion.
--- NOTE | 2016-10-10 04:51 | Treadmill Report ---
NUCLEAR CARDIAC IMAGING REPORT INDICATION FOR PROCEDURE: Abnormal cardiac enzymes. Informed consent was obtained. DESCRIPTION OF PROCEDURE: Resting nuclear cardiac images were performed 45-60 minutes following the intravenous administration of 10 mCi of technetium-99m Myoview. Vasodilator stress was achieved with the intravenous administration of 0.4 mg of Lexiscan per protocol. Subsequently, stress myocardial perfusion imaging was performed 30-45 minutes following the intravenous administration of 28 mCi of technetium-99m Myoview. Images were obtained in a 180-degree arc from 45 degrees CONTRERAS to 45 degrees LPO. After data acquisition and reconstruction, the images were processed and reoriented into the vertical long, horizontal long, and horizontal short axis slices. A polar color map of the horizontal short axis slices were generated and reviewed. The rotating planar images reviewed in cinematic format on the computer console. Gated SPECT imaging demonstrates a post-stress left ventricular ejection fraction of 44%. There is mild hypokinesis of the inferior wall. Mild myocardial perfusion imaging demonstrates no significant cavity change between stress and rest. There is a medium sized moderately intense reversible inferior wall perfusion abnormality. Nuclear cardiac imaging demonstrates mild left ventricular systolic dysfunction with evidence of inferior wall myocardial ischemia. Clinical correlation recommended. The procedure was well tolerated and there were no complications. JOB# [id number] SHELBY/JORGE
== END 2016-10-08 12:43 | disposition home or self-care (01) | DRG 281 ==
LOC: ED 18:14 → CC1 22:22 → 4A 10-07 18:46
PROVIDERS: ADMIT Internal Medicine; ATTEND Internal Medicine
PROC: 4A02XM4 Measurement of Cardiac Total Activity, External Approach (ICD-10-PCS; principal; 2016-10-07)
DX: I13.0 Hypertensive heart and chronic kidney disease with heart failure and stage 1 through stage 4 chronic kidney disease, or unspecified chronic kidney disease (principal); I21.4 Non-ST elevation (NSTEMI) myocardial infarction; I16.1 Hypertensive emergency; N17.9 Acute kidney failure, unspecified; I50.9 Heart failure, unspecified; D64.9 Anemia, unspecified; E78.1 Pure hyperglyceridemia; E66.9 Obesity, unspecified; N18.9 Chronic kidney disease, unspecified; I16.0 Hypertensive urgency; I42.9 Cardiomyopathy, unspecified; E78.5 Hyperlipidemia, unspecified; I27.2 Other secondary pulmonary hypertension; I25.10 Atherosclerotic heart disease of native coronary artery without angina pectoris; Z68.37 Body mass index [BMI] 37.0-37.9, adult; Z90.49 Acquired absence of other specified parts of digestive tract; Z71.3 Dietary counseling and surveillance; Z91.14 Patient's other noncompliance with medication regimen; Z71.89 Other specified counseling; Z82.49 Family history of ischemic heart disease and other diseases of the circulatory system
CPT/HCPCS: 36415; 71020; 76770; 78452; 80048; 80053; 80061; 82550; 82553; 83880; 84484; 85025; 85610; 85730; 90732; 93005; 93010; 93017; 93306; 96374; A9270-GY; A9502; J0360; J1650; J2785; J7050

== ENCOUNTER 2017-10-18 14:58 | Inpatient (IN) | payer SELFPAY ==
[2017-10-18] MEDS ORDERED: CATAPRES ONE ×2 (15:24)
[2017-10-18] MEDS ORDERED: CATAPRES PO ONE (16:10)
[2017-10-18 19:59] LABS: Hematocrit 29.5 % (35.5-45.6); Hemoglobin 9.1 gm/dl (11.8-15.2); Mean Corpuscular HGB Conc 31 % (32-34); Mean Corpuscular Hemoglobin 27 pg (28-32); Mean Corpuscular Volume 87 fl (84-94); Platelet Count 272 K/mm3 (140-440); Red Cell Distribution Width 16.7 % (13.2-15.2)
--- NOTE | 2017-10-18 20:41 | Emergency Department Report ---
HPI - General Chief Complaint: Medical Clearance Time Seen by Provider: 10/18/17 20:26 - HPI HPI: 52-year-old male presents to the emergency department with complaint of lower extremity swelling, elevated blood pressure, and a need for medication refills. He is been having issues with his insurance and therefore consistently changing primary care physicians. He is been out of the medication for about 1 month. She is on 4 blood pressure medications including Coreg, Imdur, Norvasc and hydralazine. He also has a history of COPD without oxygen dependence, hyperlipidemia, and he has a history of CHF. Currently he does not have a primary care physician. He has not taken anything for her symptoms prior to presentation. He denies any tobacco abuse or any illicit drug use. Despite the lower extremity swelling, he denies any chest pain, shortness breath. ED Past Medical Hx - Past Medical History Hx Hypertension: Yes Hx Congestive Heart Failure: Yes Hx Diabetes: No Hx Asthma: No Hx COPD: Yes Additional medical history: High cholesterol - Surgical History Hx Appendectomy: Yes (At age 22) Additional Surgical History: tonsillectomy - Social History Smoking Status: Never Smoker Substance Use Type: None - Medications Home Medications: Home Medications Medication Instructions Recorded Confirmed Last Taken Type Aspirin [Aspirin TAB] 325 mg PO QDAY #30 tablet 10/08/16 10/18/17 Unknown Rx AtorvaSTATin [Lipitor] 80 mg PO QHS #30 tablet 10/08/16 10/18/17 Unknown Rx Carvedilol [Coreg] 25 mg PO BID #60 tablet 10/08/16 10/18/17 Unknown Rx ISOSORBIDE MONOnitrate [Imdur ER] 30 mg PO DAILY #30 tablet 10/08/16 10/18/17 Unknown Rx amLODIPine [Norvasc] 10 mg PO DAILY #30 tablet 10/08/16 10/18/17 Unknown Rx hydrALAZINE [Apresoline TAB] 100 mg PO BID 10/18/17 10/18/17 Unknown History ED Review of Systems ROS: Stated complaint: SWELLING Other details as noted in HPI Comment: All other systems reviewed and negative Constitutional: denies: chills, fever Eyes: denies: eye pain, eye discharge, vision change ENT: denies: ear pain, throat pain Respiratory: denies: cough, shortness of breath, wheezing Cardiovascular: edema. denies: chest pain, palpitations Gastrointestinal: denies: abdominal pain, nausea, diarrhea Genitourinary: denies: urgency, dysuria Musculoskeletal: denies: back pain, joint swelling, arthralgia Skin: denies: rash, lesions Neurological: denies: headache, weakness, paresthesias Physical Exam - Physical Exam Vital Signs: Vital Signs 10/18/17 10/18/17 10/18/17 15:10 15:23 18:30 Temperature 98.9 F Pulse Rate 120 H 120 H Respiratory 20 Rate Blood Pressure 225/128 225/128 191/134 10/18/17 19:42 Temperature 97.7 F Pulse Rate 82 Respiratory 18 Rate Blood Pressure 165/119 Physical Exam: GENERAL: The patient is well-developed well-nourished. HENT: Normocephalic. Atraumatic. Patient has moist mucous membranes. EYES: Extraocular motions are intact. Pupils equal reactive to light bilaterally. NECK: Supple. Trach is midline. CHEST/LUNGS: Clear to auscultation. There is no respiratory distress noted. HEART/CARDIOVASCULAR: Regular. There is no tachycardia. There is no murmur. ABDOMEN: Abdomen is soft, nontender. Patient has normal bowel sounds. Obese habitus. SKIN: Skin is warm and dry. He has 2-3+ pitting edema to the bilateral lower extremities from the knees distally. NEURO: The patient is awake, alert, and oriented. The patient is cooperative. The patient has no focal neurologic deficits. The patient has normal speech and gait. MUSCULOSKELETAL: There is no tenderness or deformity. There is no limitation range of motion. There is no evidence of acute injury. ED Course Vital Signs 10/18/17 10/18/17 10/18/17 15:10 15:23 18:30 Temperature 98.9 F Pulse Rate 120 H 120 H Respiratory 20 Rate Blood Pressure 225/128 225/128 191/134 10/18/17 19:42 Temperature 97.7 F Pulse Rate 82 Respiratory 18 Rate Blood Pressure 165/119 - Consultations Consultation #1: 10/18/17 21:28 I spoke with the nurse transition on-call, Dr. Yang, who will see the patient has a consult tomorrow regarding the patient's worsening kidney function and renal failure. ED Medical Decision Making - Lab Data Result diagrams: 10/18/17 19:45 10/18/17 19:45 - Medical Decision Making Patient presents with severely elevated blood pressure and lower extremity edema. Labs came back showing that the patient has renal failure. The patient did not know that he had any history of renal sufficiency but the creatinine was around 5 a year ago. Today he has a BUN/creatinine 90, creatinine of 12 and a GFR 5. Patient says that he is still making a normal amount of urine and does not have any complaints of any shortness of breath or chest pain. However the patient has no primary care physician, nurse transition or any close follow-up regarding these issues. He will be admitted to the hospital for blood pressure control and a nephrology consult and was accepted for admission by the hospitalist, Dr. Ramirez. - Differential Diagnosis uremia, CHF, hypertensive urgency Critical Care Time: No Critical care attestation.: If time is entered above; I have spent that time in minutes in the direct care of this critically ill patient, excluding procedure time. ED Disposition Clinical Impression: Hypertensive crisis, Uremia Acute renal failure Qualifiers: Acute renal failure type: unspecified Qualified Code(s): N17.9 - Acute kidney failure, unspecified Disposition: DC-09 OP ADMIT IP TO THIS HOSP Is pt being admited?: Yes Condition: Fair Referrals: PRIMARY CARE, [Primary Care Provider] - 3-5 Days Time of Disposition: 21:30
[2017-10-18 21:00] LABS: Alanine Aminotransferase 20 units/L (7-56); Albumin 2.8 g/dL (3.9-5); BUN/Creatinine Ratio 8; Blood Urea Nitrogen 96 mg/dL (9-20); Hemolysis Index 5
[2017-10-18 21:20] LABS: Calcium 5.9 mg/dL (8.4-10.2)
[2017-10-18] MEDS ORDERED: LASIX IV ONE (22:10)
[2017-10-18] MEDS ORDERED: SODIUM CHLORIDE FLUSH SYRINGE 10 ML IV PRN (22:10)
[2017-10-18] MEDS ORDERED: ZOFRAN IV PRN (22:10)
[2017-10-18] MEDS ORDERED: TYLENOL PO PRN (22:10)
[2017-10-18] MEDS ORDERED: PERCOCET 5/325 PO PRN (22:10)
--- NOTE | 2017-10-18 22:13 | History and Physical Report ---
History of Present Illness Date of examination: 10/18/17 History of present illness: 52-year-old man with a history of hypertension, CHF, high kidney disease considered the emergency room for refill of his medication because he has not taken it in over one month, had difficulty getting them refilled. He has lower extremity edema but no PND, orthopnea, shortness of breath Review of systems Constitutional: no weight loss, chills, fever Ears, eyes, nose, mouth and throat: no nasal congestion, no nasal discharge, no sinus pressure, no vision change, no red eye. Neck: No neck pain or rigidity. Cardiovascular: no chest pain, palpitations Respiratory: no cough, shortness of breath Gastrointestinal: no abdominal pain hematochezia Genitourinary : no frequency , no hematuria Musculoskeletal: no joint swelling or muscle ache Integumentary: no rash, no pruritis Neurological: no parathesias, no numbness, no focal weakness Endocrine: no cold or heat intolerance, no polyuria or polydipsia Hematologic/Lymphatic: no easy bruising, no easy bleeding, no gland swelling Allergic/Immunologic: no urticaria, no angioedema. PAST MEDICAL HISTORY: Hypertension, CHF, chronic kidney disease PAST SURGICAL HISTORY: Appendicectomy SOCIAL HISTORY: No alcohol, no drugs, tobacco FAMILY HISTORY: Hypertension Medications and Allergies Allergies Allergy/AdvReac Type Severity Reaction Status Date / Time No Known Allergies Allergy Unverified 10/05/16 18:27 Home Medications Medication Instructions Recorded Confirmed Last Taken Type Aspirin [Aspirin TAB] 325 mg PO QDAY #30 tablet 10/08/16 10/18/17 Unknown Rx AtorvaSTATin [Lipitor] 80 mg PO QHS #30 tablet 10/08/16 10/18/17 Unknown Rx Carvedilol [Coreg] 25 mg PO BID #60 tablet 10/08/16 10/18/17 Unknown Rx ISOSORBIDE MONOnitrate [Imdur ER] 30 mg PO DAILY #30 tablet 10/08/16 10/18/17 Unknown Rx amLODIPine [Norvasc] 10 mg PO DAILY #30 tablet 10/08/16 10/18/17 Unknown Rx hydrALAZINE [Apresoline TAB] 100 mg PO BID 10/18/17 10/18/17 Unknown History Active Meds: Active Medications Amlodipine Besylate (Norvasc) 10 mg PO DAILY [facility] Aspirin (Aspirin) 325 mg PO QDAY BRITT Atorvastatin Calcium (Lipitor) 80 mg PO QHS BRITT Carvedilol (Coreg) 25 mg PO BID BRITT Furosemide (Lasix) 20 mg IV ONCE ONE Stop: 10/18/17 22:11 Hydralazine HCl (Apresoline) 5 mg IV Q6HR PRN PRN Reason: Hypertension Exam - Physical Exam Narrative exam: Gen. appearance: Patient lying in bed, no apparent distress HEENT: Normocephalic, atraumatic, pupils equally round and reactive to light, extraocular movement intact, and no sclericterus,. No JVD or thyromegaly or nodule,neck supple, no carotid bruit ,mucous membranes moist, no exudate or erythema Heart: S1, S2, regular rate and rhythm Lungs: Clear bilaterally, breathing comfortable Abdomen: Positive bowel sounds, non-tender, nondistended, no organomegaly Extremity:+edema up to knees, no cyanosis, clubbing Skin: no rash, dry, warm Neuro: Oriented 3, cranial nerves II-12 intact, speech is fluent, motor and sensory intact - Constitutional Vitals: Temp Pulse Resp BP Pulse Ox 97.7 F 84 15 172/120 99 10/18/17 19:42 10/18/17 21:21 10/18/17 21:21 10/18/17 21:21 10/18/17 21:21 Results - Labs CBC & Chem 7: 10/18/17 19:45 10/18/17 19:45 Labs: Abnormal lab results 10/18/17 10/18/17 Range/Units 19:45 19:45 RBC 3.40 L (3.65-5.03) M/mm3 Hgb 9.1 L (11.8-15.2) gm/dl Hct 29.5 L (35.5-45.6) % MCH 27 L (28-32) pg MCHC 31 L (32-34) % RDW 16.7 H (13.2-15.2) % Carbon Dioxide 14 L (22-30) mmol/L BUN 96 H (9-20) mg/dL Creatinine 12.0 H (0.8-1.5) mg/dL Glucose 70 L (75-100) mg/dL Calcium 5.9 L* (8.4-10.2) mg/dL Alkaline Phosphatase 131 H (35-129) units/L NT-Pro-B Natriuret Pep > 87435 H (0-900) pg/mL Total Protein 5.5 L (6.3-8.2) g/dL Albumin 2.8 L (3.9-5) g/dL - Imaging and Cardiology EKG: image reviewed Assessment and Plan Assessment Acute on chronic kidney disease Lower Extremity edema Hypertension malignant CHF, stable Plan Admit to medicine Check ultrasound of the kidneys, consult renal Start IV Lasix, restart his antihypertensive IV hydralazine for blood pressure control DVT prophylaxis, check CXR
[2017-10-18] MEDS ORDERED: LASIX ONE (23:32)
[2017-10-18] MEDS ORDERED: APRESOLINE ONE (23:33)
[2017-10-18] MEDS: APRESOLINE IV PRN (23:38)
[2017-10-19] MEDS ORDERED: COREG ONE (00:18)
[2017-10-19] MEDS: COREG PO SCH ×3 (00:25→21:55)
--- NOTE | 2017-10-19 00:54 | XRay Report ---
FINAL REPORT PROCEDURE: XR CHEST 1V AP TECHNIQUE: Chest radiograph anteroposterior view. CPT 75977 HISTORY: le EDEMA COMPARISON: No prior studies are available for comparison. FINDINGS: Heart: Normal. Mediastinum/Vessels: Normal. Lungs/Pleural space: Normal. Bony thorax: No acute osseous abnormality. Life support devices: None. IMPRESSION: No acute cardiopulmonary abnormality.
[2017-10-19 06:13] LABS: Basophils % (Auto) 0.5 % (0.0-1.8); Eosinophils # (Auto) 0.1 K/mm3 (0.0-0.4); Eosinophils % (Auto) 1.8 % (0.0-4.3); Hematocrit 27.3 % (35.5-45.6); Hemoglobin 8.4 gm/dl (11.8-15.2); Lymphocytes # (Auto) 0.6 K/mm3 (1.2-5.4); Lymphocytes % (Auto) 12.5 % (13.4-35.0); Mean Corpuscular HGB Conc 31 % (32-34); Mean Corpuscular Hemoglobin 26 pg (28-32); Mean Corpuscular Volume 85 fl (84-94); Monocytes # (Auto) 0.4 K/mm3 (0.0-0.8); Monocytes % (Auto) 8.1 % (0.0-7.3); Platelet Count 265 K/mm3 (140-440)
[2017-10-19 06:46] LABS: Calcium 5.8 mg/dL (8.4-10.2)
[2017-10-19] MEDS: NORVASC PO SCH (09:17)
[2017-10-19] MEDS: LOVENOX SUB-Q SCH (09:18)
[2017-10-19] MEDS: SODIUM CHLORIDE FLUSH SYRINGE 10 ML IV SCH ×2 (09:19→21:56)
[2017-10-19] MEDS: ASPIRIN PO SCH (09:28)
--- NOTE | 2017-10-19 09:44 | Consultation ---
History of Present Illness - Reason for Consult Consult date: 10/19/17 chronic renal failure - History of Present Illness Very pleasant 52 y/o AAM with a PMHx of HTN and poor medical compliance and follow up secondary to social situation/income, presents to the ED secondary to lower extremity edema and the need to have his medications refilled. He has a h/ o advanced CKD and when he had come in for hypertensive emergency one year prior , his creatinine was already 4.5 and eGFR <15 indicating CKD V. He did not see nephrology during that admission and did not follow up with a nephrology as an outpatient. He has run out of all medications for over one month. Since he lost his job 3 years ago, he has been inconsistent with his medications. He still urinates and has not noted any decrease in his urine output. He denies any hematuria. He denies any headache, chest pain, shortness of breath. Chest xray is clear. He does have some pedal edema noted on exam. he states that overall he feels like his normal state of health otherwise and had that his activities of daily living have not been affected. He denies any NSAID use, denies any h/o DM. He denies any OTC medications or herbal supplements. He has not resting tremors/asterexis. He denies any nose bleeds. He does state some mild metallic taste in mouth and slight decrease in his appetite over the last week. Since coming to the hospital, his blood pressures have improved and he has been placed on a PO regimen for his HTN. No acute issues this morning. Past History Past Medical History: heart failure, hypertension, renal failure Past Surgical History: appendectomy Social history: no significant social history Family history: diabetes (Aunt was on dialysis but he is unclear the etiology of her renal disease ) Medications and Allergies Allergies Allergy/AdvReac Type Severity Reaction Status Date / Time No Known Allergies Allergy Unverified 10/05/16 18:27 Home Medications Medication Instructions Recorded Confirmed Last Taken Type Aspirin [Aspirin TAB] 325 mg PO QDAY #30 tablet 10/08/16 10/18/17 Unknown Rx AtorvaSTATin [Lipitor] 80 mg PO QHS #30 tablet 10/08/16 10/18/17 Unknown Rx Carvedilol [Coreg] 25 mg PO BID #60 tablet 10/08/16 10/18/17 Unknown Rx ISOSORBIDE MONOnitrate [Imdur ER] 30 mg PO DAILY #30 tablet 10/08/16 10/18/17 Unknown Rx amLODIPine [Norvasc] 10 mg PO DAILY #30 tablet 10/08/16 10/18/17 Unknown Rx hydrALAZINE [Apresoline TAB] 100 mg PO BID 10/18/17 10/18/17 Unknown History Active Meds: Active Medications Acetaminophen (Tylenol) 650 mg PO Q4H PRN PRN Reason: Pain MILD(1-3)/Fever >100.5/FRAIRE Amlodipine Besylate (Norvasc) 10 mg PO DAILY [facility] Last Admin: 10/19/17 09:17 Dose: 10 mg Aspirin (Aspirin) 325 mg PO QDAY [facility] Last Admin: 10/19/17 09:28 Dose: Not Given Atorvastatin Calcium (Lipitor) 80 mg PO QHS [facility] Carvedilol (Coreg) 25 mg PO BID [facility] Last Admin: 10/19/17 09:17 Dose: 25 mg Enoxaparin Sodium (Lovenox) 30 mg SUB-Q QDAY [facility] Last Admin: 10/19/17 09:18 Dose: Not Given Furosemide (Lasix) 20 mg IV DAILY [facility] Hydralazine HCl (Apresoline) 5 mg IV Q6H PRN PRN Reason: Hypertension Last Admin: 10/18/17 23:38 Dose: 5 mg Ondansetron HCl (Zofran) 4 mg IV Q8H PRN PRN Reason: Nausea And Vomiting Oxycodone/Acetaminophen (Percocet 5/325) 1 tab PO Q6H PRN PRN Reason: Pain, Moderate (4-6) Sodium Chloride (Sodium Chloride Flush Syringe 10 Ml) 10 ml IV BID [facility] Last Admin: 10/19/17 09:19 Dose: 10 ml Sodium Chloride (Sodium Chloride Flush Syringe 10 Ml) 10 ml IV PRN PRN PRN Reason: LINE FLUSH Review of Systems All systems: negative Cardiovascular: edema, high blood pressure Exam - Vital Signs Vital signs: Vital Signs Temp Pulse Resp BP 98.9 F 120 H 20 225/128 10/18/17 15:10 10/18/17 15:10 10/18/17 15:10 10/18/17 15:10 - General Appearance General appearance: well-developed, well-nourished, appears stated age, obese EENT: PERRL, mucous membranes moist, vision intact Neck: Present: neck supple, trachea midline Respiratory: Clear to Ascultation, Normal Exam Heart: regular, normal heart rate, S1S2 Gastrointestinal: Present: normal, normoactive bowel sounds Integumentary: no rash, warm and dry Neurologic: no focal deficit, no asterixis, alert and oriented x3, CN 3-12 intact Musculoskeletal: Present: deferred Psychiatric: mood/affect appropriate, cooperative Results - Lab Results 10/19/17 04:58 10/19/17 04:58 Most recent lab results Calcium 5.8 mg/dL (8.4-10.2) L* 10/19/17 04:58 Assessment and Plan - Patient Problems (1) Chronic kidney disease, stage 5, kidney failure Current Visit: Yes Status: Acute Plan to address problem: He has no acute indications for initiation of HD. However he has advanced CKD V and will likely progress to dialysis in the next 3 months. He has no evidence of severe uremia, volume overload, pericardial friction rub or decreased urine output to necessitate urgent start of HD. However, I have talked the vascular team and plan is for mapping and placement of AVF. Patient is right handed, so I instructed nursing staff that no IV line insertion , blood draws or blood pressure measurements should be done on her left hand, so to preserve for access creation. Patient needs to follow up with me as an outpatient. (2) Hypertensive kidney disease with stage 5 chronic kidney disease Current Visit: Yes Status: Acute Plan to address problem: Agree with restarting his previous home blood pressure regimen of coreg and amlodipine at present time. His blood pressure seems to be better controlled this morning. Will monitor closely, Needs to maintain a low sodium diet. (3) Metabolic acidosis Current Visit: Yes Status: Acute Plan to address problem: Will benefit from oral bicarbonate. We can start with 650 mg PO BID (4) Secondary hyperparathyroidism (of renal origin) Current Visit: Yes Status: Acute Plan to address problem: Will check an iPTH. (5) Hyperlipidemia Current Visit: Yes Status: Acute Plan to address problem: Can resume his previous statin therapy. Lipid panel to be monitored in the outpatient setting by his PCP (6) Obesity (BMI 30-39.9) Current Visit: Yes Status: Acute Plan to address problem: Likely an additional factor in his worsening/chronic renal disease. Counseled on importance of appropriate dietary discretions.
[2017-10-19] MEDS ORDERED: CALCIUM GLUCONATE 1,000 MG in NACL 0.9% 100 ML IV ONE (10:00)
--- NOTE | 2017-10-19 10:02 | Progress Note ---
Assessment and Plan Assessment and plan: 52-year-old man with a history of hypertension, CHF, chronic kidney disease considered the emergency room for refill of his medication because he has not taken it in over one month, had difficulty getting them refilled due to change of insurance and no PCP. He has lower extremity edema but no PND, orthopnea, shortness of breath Acute on chronic kidney disease * Nephrology following. Vascular consulted for HD access in preparation for future date HD initiation Lower Extremity edema * Diuressing with renew of medication. Likely underlying chf, Hypertension malignant * Improved with initiation of Home medication Acute on chronic Diastolic CHF, * Check echo, * outpatient cardiology visit Anemia * ?etiology, will monitor. but referred Morbid Obesity * Counselling provided about weight loss 15mins spent. Patient verbalized understanding. Metabolic Acidosis * Renal following, anticipate corrected with Renal office Hyperparathyrodisim * Cannot states categorically that we were wrong History Interval history: Patient seen and examined today, reports improvement in symptoms. blames insurance and PCP for the lack of medication compliance, states his PCP refuses his new insurance which he is obligated to change to to finical changes at the end of the year and a 6 months delay for effective date. Denies any chest pain, Nausea, vomiting or diarrhea at this time. Hospitalist Physical - Physical exam Narrative exam: Gen. appearance: Patient lying in bed, no apparent distress. morbidly obese HEENT: Normocephalic, atraumatic, pupils equally round and reactive to light, extraocular movement intact, and no sclericterus, No JVD or thyromegaly or nodule,neck supple, no carotid bruit ,mucous membranes moist, no exudate or erythema Heart: S1, S2, regular rate and rhythm Lungs: diminished bilaterally, breathing comfortable Abdomen: Positive bowel sounds, non-tender, nondistended, no organomegaly Extremity:+edema up to knees, no cyanosis, clubbing Skin: no rash, dry, warm Neuro: Oriented 3, cranial nerves II-12 intact, speech is fluent, motor and sensory intact - Constitutional Vitals: Temp Pulse Resp BP Pulse Ox 97.6 F 74 18 154/101 96 10/19/17 07:49 10/19/17 09:17 10/19/17 08:37 10/19/17 09:17 10/19/17 08:37 Results - Labs CBC & Chem 7: 10/19/17 04:58 07/31/18 04:58 Labs: Laboratory Last Values WBC 5.1 K/mm3 (4.5-11.0) 10/19/17 04:58 RBC 3.20 M/mm3 (3.65-5.03) L 10/19/17 04:58 Hgb 8.4 gm/dl (11.8-15.2) L 10/19/17 04:58 Hct 27.3 % (35.5-45.6) L 10/19/17 04:58 MCV 85 fl (84-94) 10/19/17 04:58 MCH 26 pg (28-32) L 10/19/17 04:58 MCHC 31 % (32-34) L 10/19/17 04:58 RDW 16.0 % (13.2-15.2) H 10/19/17 04:58 Plt Count 265 K/mm3 (140-440) 10/19/17 04:58 Lymph % (Auto) 12.5 % (13.4-35.0) L 10/19/17 04:58 [place] % (Auto) 8.1 % (0.0-7.3) H 10/19/17 04:58 Eos % (Auto) 1.8 % (0.0-4.3) 10/19/17 04:58 Baso % (Auto) 0.5 % (0.0-1.8) 10/19/17 04:58 Lymph # 0.6 K/mm3 (1.2-5.4) L 10/19/17 04:58 [place] # 0.4 K/mm3 (0.0-0.8) 10/19/17 04:58 Eos # 0.1 K/mm3 (0.0-0.4) 10/19/17 04:58 Baso # 0.0 K/mm3 (0.0-0.1) 10/19/17 04:58 Seg Neutrophils % 77.1 % (40.0-70.0) H 10/19/17 04:58 Seg Neutrophils # 4.0 K/mm3 (1.8-7.7) 10/19/17 04:58 Sodium 143 mmol/L (137-145) 10/19/17 04:58 Potassium 5.0 mmol/L (3.6-5.0) D 10/19/17 04:58 Chloride 108.8 mmol/L (98-107) H 10/19/17 04:58 Carbon Dioxide 16 mmol/L (22-30) L 10/19/17 04:58 Anion Gap 23 mmol/L 10/19/17 04:58 BUN 99 mg/dL (9-20) H 10/19/17 04:58 Creatinine 12.2 mg/dL (0.8-1.5) H 10/19/17 04:58 Estimated GFR 5 ml/min 10/19/17 04:58 BUN/Creatinine Ratio 8 % 10/19/17 04:58 Glucose 99 mg/dL (75-100) 10/19/17 04:58 Calcium 5.8 mg/dL (8.4-10.2) L* 10/19/17 04:58 Total Bilirubin 0.30 mg/dL (0.1-1.2) 10/18/17 19:45 AST 11 units/L (5-40) 10/18/17 19:45 ALT 20 units/L (7-56) 10/18/17 19:45 Alkaline Phosphatase 131 units/L (35-129) H 10/18/17 19:45 NT-Pro-B Natriuret Pep > 30836 pg/mL (0-900) H 10/18/17 19:45 Total Protein 5.5 g/dL (6.3-8.2) L 10/18/17 19:45 Albumin 2.8 g/dL (3.9-5) L 10/18/17 19:45 Albumin/Globulin Ratio 1.0 % 10/18/17 19:45 - Imaging and Cardiology Chest x-ray: image reviewed (no acute cardioplumonary pathology noted)
[2017-10-19] MEDS: LASIX IV SCH (10:23)
[2017-10-19] MEDS: SODIUM BICARBONATE PO SCH ×2 (10:24→21:56)
--- NOTE | 2017-10-19 16:42 | Consultation ---
History of Present Illness - Reason for Consult Consult date: 10/19/17 Evaluate for oil heaterman HD access Requesting physician: VANESSA SINGLETON - History of Present Illness This pt is a 52 yo AAM admitted via the [facility] ER on 10/18/17 due to acute on chronic kidney failure. The pt "ran out" of his medication earlier this month. He began swelling and sought further care at the hospital. He has since been admitted and a nephrology consult was placed. The pt is felt to need [employer]TAINER at some point in the near future, but not at present. A vascular surgery consult is requested to evaluate for intermediate HD access. Past History Past Medical History: heart failure, hypertension, renal failure Past Surgical History: appendectomy Social history: no significant social history (previously worked at [employer] and [employer]), lives with family (Brother). denies: smoking (denies any previous tobacco use) Family history: CAD, diabetes (Aunt was on dialysis but he is unclear the etiology of her renal disease ), stroke Medications and Allergies Allergies Allergy/AdvReac Type Severity Reaction Status Date / Time No Known Allergies Allergy Unverified 10/05/16 18:27 Home Medications Medication Instructions Recorded Confirmed Last Taken Type Aspirin [Aspirin TAB] 325 mg PO QDAY #30 tablet 10/08/16 10/18/17 Unknown Rx AtorvaSTATin [Lipitor] 80 mg PO QHS #30 tablet 10/08/16 10/18/17 Unknown Rx Carvedilol [Coreg] 25 mg PO BID #60 tablet 10/08/16 10/18/17 Unknown Rx ISOSORBIDE MONOnitrate [Imdur ER] 30 mg PO DAILY #30 tablet 10/08/16 10/18/17 Unknown Rx amLODIPine [Norvasc] 10 mg PO DAILY #30 tablet 10/08/16 10/18/17 Unknown Rx hydrALAZINE [Apresoline TAB] 100 mg PO BID 10/18/17 10/18/17 Unknown History Active Meds: Active Medications Acetaminophen (Tylenol) 650 mg PO Q4H PRN PRN Reason: Pain MILD(1-3)/Fever >100.5/FRAIRE Amlodipine Besylate (Norvasc) 10 mg PO DAILY [facility] Last Admin: 10/19/17 09:17 Dose: 10 mg Aspirin (Aspirin) 325 mg PO QDAY [facility] Last Admin: 07/31/18 09:28 Dose: Not Given Atorvastatin Calcium (Lipitor) 80 mg PO QHS [facility] Carvedilol (Coreg) 25 mg PO BID [facility] Last Admin: 10/19/17 09:17 Dose: 25 mg Enoxaparin Sodium (Lovenox) 30 mg SUB-Q QDAY [facility] Last Admin: 10/19/17 09:18 Dose: Not Given Furosemide (Lasix) 20 mg IV DAILY [facility] Last Admin: 10/19/17 10:23 Dose: 20 mg Hydralazine HCl (Apresoline) 5 mg IV Q6H PRN PRN Reason: Hypertension Last Admin: 10/18/17 23:38 Dose: 5 mg Ondansetron HCl (Zofran) 4 mg IV Q8H PRN PRN Reason: Nausea And Vomiting Oxycodone/Acetaminophen (Percocet 5/325) 1 tab PO Q6H PRN PRN Reason: Pain, Moderate (4-6) Sodium Bicarbonate (Sodium Bicarbonate) 650 mg PO BID [facility] Last Admin: 10/19/17 10:24 Dose: 650 mg Sodium Chloride (Sodium Chloride Flush Syringe 10 Ml) 10 ml IV BID [facility] Last Admin: 10/19/17 09:19 Dose: 10 ml Sodium Chloride (Sodium Chloride Flush Syringe 10 Ml) 10 ml IV PRN PRN PRN Reason: LINE FLUSH Review of Systems All systems: negative Exam - Constitutional Vitals: Temp Pulse Resp BP Pulse Ox 97.6 F 74 18 154/101 96 10/19/17 07:49 10/19/17 09:17 10/19/17 08:37 10/19/17 09:17 10/19/17 08:37 General appearance: Present: no acute distress, obese - EENT Eyes: Present: EOM intact ENT: hearing intact - Neck Neck: Present: supple - Respiratory Respiratory effort: normal (unlabored at rest) - Extremities Extremities: normal temperature - Psychiatric Psychiatric: appropriate mood/affect, intact judgment & insight, cooperative - Neurologic Neurologic: no focal deficits Results - Labs CBC & Chem 7: 10/19/17 04:58 10/19/17 04:58 Labs: Abnormal lab results 10/18/17 10/18/17 10/19/17 Range/Units 19:45 19:45 04:58 RBC 3.40 L 3.20 L (3.65-5.03) M/mm3 Hgb 9.1 L 8.4 L (11.8-15.2) gm/dl Hct 29.5 L 27.3 L (35.5-45.6) % MCH 27 L 26 L (28-32) pg MCHC 31 L 31 L (32-34) % RDW 16.7 H 16.0 H (13.2-15.2) % Lymph % (Auto) 12.5 L (13.4-35.0) % [place] % (Auto) 8.1 H (0.0-7.3) % Lymph # 0.6 L (1.2-5.4) K/mm3 Seg Neutrophils % 77.1 H (40.0-70.0) % Chloride (98-107) mmol/L Carbon Dioxide 14 L (22-30) mmol/L BUN 96 H (9-20) mg/dL Creatinine 12.0 H (0.8-1.5) mg/dL Glucose 70 L (75-100) mg/dL Calcium 5.9 L* (8.4-10.2) mg/dL Alkaline Phosphatase 131 H (35-129) units/L NT-Pro-B Natriuret Pep > 08375 H (0-900) pg/mL Total Protein 5.5 L (6.3-8.2) g/dL Albumin 2.8 L (3.9-5) g/dL PTH Intact (15-65) pg/mL 10/19/17 10/19/17 Range/Units 04:58 11:07 RBC (3.65-5.03) M/mm3 Hgb (11.8-15.2) gm/dl Hct (35.5-45.6) % MCH (28-32) pg MCHC (32-34) % RDW (13.2-15.2) % Lymph % (Auto) (13.4-35.0) % [place] % (Auto) (0.0-7.3) % Lymph # (1.2-5.4) K/mm3 Seg Neutrophils % (40.0-70.0) % Chloride 108.8 H (98-107) mmol/L Carbon Dioxide 16 L (22-30) mmol/L BUN 99 H (9-20) mg/dL Creatinine 12.2 H (0.8-1.5) mg/dL Glucose (75-100) mg/dL Calcium 5.8 L* (8.4-10.2) mg/dL Alkaline Phosphatase (35-129) units/L NT-Pro-B Natriuret Pep (0-900) pg/mL Total Protein (6.3-8.2) g/dL Albumin (3.9-5) g/dL PTH Intact 275.2 H (15-65) pg/mL Assessment and Plan Pt has acute on chronic kidney disease. He has been eval'd by nephrology. He does not need HD at present, but likely will in the near future. A vascular surgery consult is requested to eval for intermediate HD. He is right hand dominant. Will order a vein mapping, and recommend no further venipuncture in the LUE to perserve options for fistula creation in the LUE. Additional recommendations based upon these findings. Discussed with the pt who stated understanding and agrees. - Patient Problems (1) Acute renal failure Current Visit: Yes Status: Acute Qualifiers: Acute renal failure type: unspecified Qualified Code(s): N17.9 - Acute kidney failure, unspecified (2) Chronic kidney disease, stage 5, kidney failure Current Visit: Yes Status: Acute (3) HTN (hypertension) Current Visit: Yes Status: Acute (4) Obesity (BMI 30-39.9) Current Visit: Yes Status: Acute (5) Medical non-compliance Current Visit: Yes Status: Acute
[2017-10-20 05:48] LABS: Hematocrit 25.8 % (35.5-45.6); Hemoglobin 8.2 gm/dl (11.8-15.2); Mean Corpuscular HGB Conc 32 % (32-34); Mean Corpuscular Hemoglobin 27 pg (28-32); Mean Corpuscular Volume 84 fl (84-94); Platelet Count 231 K/mm3 (140-440); Red Blood Count 3.07 M/mm3 (3.65-5.03); Red Cell Distribution Width 15.6 % (13.2-15.2)
[2017-10-20 06:09] LABS: Calcium 5.9 mg/dL (8.4-10.2)
[2017-10-20] MEDS ORDERED: CALCIUM GLUCONATE 2,000 MG in NACL 0.9% 100 ML IV ONE (07:14)
--- NOTE | 2017-10-20 07:51 | Progress Note ---
Assessment and Plan - Patient Problems (1) Chronic kidney disease, stage 5, kidney failure Current Visit: Yes Status: Acute Plan to address problem: He has no acute indications for initiation of HD. However he has advanced CKD V and will likely progress to dialysis in the next 3 months. He has no evidence of severe uremia, volume overload, pericardial friction rub or decreased urine output to necessitate urgent start of HD. However, I have talked the vascular team and plan is for mapping and placement of AVF. Patient is right handed, so I instructed nursing staff that no IV line insertion , blood draws or blood pressure measurements should be done on her left hand, so to preserve for access creation. Patient needs to follow up with me as an outpatient. Plan for vein mapping today. (2) Hypertensive kidney disease with stage 5 chronic kidney disease Current Visit: Yes Status: Acute Plan to address problem: Agree with restarting his previous home blood pressure regimen of coreg and amlodipine at present time. His blood pressure seems to be better controlled this morning. Will monitor closely, Needs to maintain a low sodium diet. (3) Metabolic acidosis Current Visit: Yes Status: Acute Plan to address problem: Started patient on sodium bicarb 1 tab po BID. (4) Secondary hyperparathyroidism (of renal origin) Current Visit: Yes Status: Acute Plan to address problem: elevated iPTH noted in setting of advanced renal disease. Started on calitriol 0.25 mcg in setting of hypocalcemia as well. Patient received 2 g calcium gluconate this morning. (5) Hyperlipidemia Current Visit: Yes Status: Acute Plan to address problem: Can resume his previous statin therapy. Lipid panel to be monitored in the outpatient setting by his PCP (6) Obesity (BMI 30-39.9) Current Visit: Yes Status: Acute Plan to address problem: Likely an additional factor in his worsening/chronic renal disease. Counseled on importance of appropriate dietary discretions. (7) Anemia in chronic kidney disease (CKD) Current Visit: Yes Status: Acute Plan to address problem: Will assess iron studies/Ferritin/TIBC. Subjective Date of service: 10/20/17 Interval history: No acute issues overnight. Remains non oliguric. Labs stable. no acute complaints. Seen by vascular surgery and plan for vein mapping today. Blood pressure stable, under good control on current regimen. Objective - Vital Signs Vital signs: Vital Signs - 12hr 10/19/17 10/19/17 10/19/17 20:50 21:55 22:27 Temperature 98.8 F Pulse Rate 85 88 Respiratory 24 Rate Blood Pressure 135/93 141/98 O2 Sat by Pulse 99 100 Oximetry 10/20/17 06:07 Temperature 97.7 F Pulse Rate 81 Respiratory 20 Rate Blood Pressure 112/71 O2 Sat by Pulse 97 Oximetry - General Appearance General appearance: well-developed, well-nourished, appears stated age, obese EENT: PERRL, mucous membranes moist Neck: no JVD, no thyromegaly Respiratory: Present: Clear to Ascultation, Normal Exam Cardiology: regular, normal heart rate Gastrointestinal: normal, normoactive bowel sounds Integumentary: no rash, warm and dry Neurologic: no focal deficit, no asterixis, alert and oriented x3, CN 3-12 intact Musculoskeletal: other (edema of lower extremties ) Psychiatric: mood/affect appropriate - Lab 10/20/17 04:42 10/20/17 04:42 Most recent lab results Calcium 5.9 mg/dL (8.4-10.2) L* 10/20/17 04:42 - Imaging Chest x-ray: report reviewed - Allied health notes Allied health notes reviewed: nursing
--- NOTE | 2017-10-20 11:02 | Discharge Summary ---
Providers - Providers Date of Admission: 10/18/17 22:10 Attending physician: JOSEF ANDINO MD 10/18/17 21:17 Consult to Physician [CONS] Routine Comment: Dr. Hutson spoke with Dr. Singleton @ [id number] Consulting Provider: VANESSA SINGLETON Physician Instructions: Reason For Exam: MANUEL, Renal Failure 10/19/17 10:01 Consult to Dietitian/Nutrition [CONS] Routine Physician Instructions: Reason For Exam: Reason for Consult: Diet education Primary care physician: [employer] Hospitalization Reason for admission: htn, ckd Condition: Stable Hospital course: 52-year-old man with a history of hypertension, CHF, chronic kidney disease considered the emergency room for refill of his medication because he has not taken it in over one month, had difficulty getting them refilled due to change of insurance and no PCP. He has lower extremity edema but no PND, orthopnea, shortness of breath. On admission the patient had reinitiation of home medication with improvement in blood pressure. The patient and also underwent vein mapping for initiation of dialysis. This will likely happen at a future date as patient is required to follow-up with nephrology outpatient and he verbalized understanding. His blood pressure has improved hemoglobin has remained stable this is likely secondary to anemia of chronic renal disease. Stress counseling provided to the patient about weight loss and also dietary requirements patient verbalized understanding. Acute on chronic kidney disease Lower Extremity edema Hypertension malignant Acute on chronic Diastolic CHF, Anemia of chronic renal disease Morbid Obesity Metabolic Acidosis Hyperparathyrodisim Disposition: TO HOME OR SELFCARE Time spent for discharge: 35 mins Core Measure Documentation - Palliative Care Palliative Care/ Comfort Measures: Not Applicable - Core Measures Any of the following diagnoses?: none - VTE Discharge Requirements Deep Vein Thrombosis/Pulmonary Embolism Present on Admission: No Exam - Physical Exam Narrative exam: Gen. appearance: Patient lying in bed, no apparent distress. morbidly obese HEENT: Normocephalic, atraumatic, pupils equally round and reactive to light, extraocular movement intact, and no sclericterus, No JVD or thyromegaly or nodule,neck supple, no carotid bruit ,mucous membranes moist, no exudate or erythema Heart: S1, S2, regular rate and rhythm Lungs: diminished bilaterally, breathing comfortable Abdomen: Positive bowel sounds, non-tender, nondistended, no organomegaly Extremity:+edema improved from yesterday. No cyanosis, clubbing Skin: no rash, dry, warm Neuro: Oriented 3, cranial nerves II-12 intact, speech is fluent, motor and sensory intact - Constitutional Vitals: Temp Pulse Resp BP Pulse Ox 97.7 F 81 20 112/71 97 10/20/17 06:07 10/20/17 06:07 10/20/17 06:07 10/20/17 06:07 10/20/17 06:07 Plan Activity: advance as tolerated, fall precautions Diet: low fat, renal Follow up with: PRIMARY CARE, [Primary Care Provider] - 3-5 Days VANESSA SINGLETON DO [Staff Physician] - 7 Days Prescriptions: AtorvaSTATin [Lipitor] 80 mg PO QHS #30 tablet amLODIPine [Norvasc] 10 mg PO DAILY #30 tablet Aspirin [Aspirin TAB] 325 mg PO QDAY #30 tablet Carvedilol [Coreg] 25 mg PO BID #60 tablet Furosemide [Lasix] 20 mg PO QDAY #30 tablet hydrALAZINE [Apresoline TAB] 100 mg PO BID #30 tablet ISOSORBIDE MONOnitrate [Imdur ER] 30 mg PO DAILY #30 tablet Sodium Bicarbonate 650 mg PO BID #6 tablet
[2017-10-20] MEDS: COREG PO SCH (12:02)
[2017-10-20] MEDS: ASPIRIN PO SCH (12:02)
[2017-10-20] MEDS: LASIX IV SCH (12:02)
[2017-10-20] MEDS: SODIUM CHLORIDE FLUSH SYRINGE 10 ML IV SCH (12:03)
[2017-10-20] MEDS: NORVASC PO SCH (12:03)
[2017-10-20] MEDS: SODIUM BICARBONATE PO SCH (12:04)
[2017-10-20] MEDS: LOVENOX SUB-Q SCH (12:04)
[2017-10-20 14:01] LABS: Iron 18 ug/dL (49-181); Total Iron Binding Capacity 290 mcg/dL (250-450)
[2017-10-20 18:15] VITALS: BP 152/90
== END 2017-10-20 19:00 | disposition home or self-care (01) | DRG 682 ==
LOC: ED 14:58 → 4A 22:10 → 3A 10-19 17:30
PROVIDERS: ADMIT Internal Medicine; ATTEND Internal Medicine
DX: N17.9 Acute kidney failure, unspecified (principal); I50.33 Acute on chronic diastolic (congestive) heart failure; Z68.41 Body mass index [BMI] 40.0-44.9, adult; E87.2 Acidosis; I13.2 Hypertensive heart and chronic kidney disease with heart failure and with stage 5 chronic kidney disease, or end stage renal disease; D63.1 Anemia in chronic kidney disease; E66.01 Morbid (severe) obesity due to excess calories; N18.5 Chronic kidney disease, stage 5; N25.81 Secondary hyperparathyroidism of renal origin; E78.5 Hyperlipidemia, unspecified; Z90.49 Acquired absence of other specified parts of digestive tract; Z82.49 Family history of ischemic heart disease and other diseases of the circulatory system; Z71.89 Other specified counseling; Z83.3 Family history of diabetes mellitus; Z82.3 Family history of stroke; Z79.82 Long term (current) use of aspirin; Z79.899 Other long term (current) drug therapy; Z91.14 Patient's other noncompliance with medication regimen; Z71.3 Dietary counseling and surveillance
CPT/HCPCS: 36415; 71045; 80048; 80053; 82306; 82728; 83550; 83880; 83970; 85025; 85027; 93306; 96374; 96375; A9270-GY; J0360; J0610; J1650; J1940

== ENCOUNTER 2018-08-17 09:31 | Day surgery (SDC) | payer MEDICAID, MEDICARE ==
--- NOTE | 2018-08-17 07:36 | Anesthesia Consultation ---
Anesthesia Consult and Med Hx Date of service: 08/17/18 - Airway Anesthetic Teeth Evaluation: Good ROM Head & Neck: Adequate Mental/Hyoid Distance: Adequate Mallampati Class: Class II Intubation Access Assessment: Probably Good - Pulmonary Exam CTA: Yes - Cardiac Exam Cardiac Exam: RRR - Pre-Operative Health Status ASA Pre-Surgery Classification: ASA4 Proposed Anesthetic Plan: MAC - Pulmonary Hx Smoking: No Hx Asthma: No Hx Respiratory Symptoms: Yes (Pul HTN) COPD: No Hx Pneumonia: No Hx Sleep Apnea: No - Cardiovascular System Hx Hypertension: Yes Hx Coronary Artery Disease: Yes (CHF 30-35%) Hx Heart Attack/AMI: No Hx Angina: No Hx Percutaneous Transluminal Coronary Angioplasty (PTCA): No Hx Pacemaker: No Hx Internal Defibrillator: No Hx Valvular Heart Disease: No Hx Heart Murmur: No Hx Peripheral Vascular Disease: No - Central Nervous System Hx Psychiatric Problems: No - Endocrine Hx Renal Disease: Yes Hx End Stage Renal Disease: Yes - Other Systems Hx Alcohol Use: No Hx Substance Use: No Hx Cancer: No
--- NOTE | 2018-08-17 07:37 | Anesthesia Day of Surgery ---
Anesthesia Day of Surgery - Day of Surgery Patient Examined: Yes Patient H&P Reviewed: Yes Patient is NPO: Yes Beta Blockers: No Cardiac Clearance: Yes Pulmonary Clearance: No
[~2018-08-17 09:31] MED LIST: NACL 0.9% 1000 ML 1,000 ML IV SCH
[2018-08-17] MEDS ORDERED: SUBLIMAZE ONE (12:03)
[2018-08-17] MEDS ORDERED: DIPRIVAN 10 MG/ML IV ONE ×2 (12:03→12:04)
[2018-08-17] MEDS ORDERED: VERSED ONE (12:03)
[2018-08-17] MEDS ORDERED: WATER FOR IRRIG STERILE ONE (12:05)
[2018-08-17] MEDS ORDERED: WATER FOR IRRIG STERILE IR ONE (12:05)
--- NOTE | 2018-08-17 12:30 | Short Stay Summary ---
Short Stay Documentation Date of service: 08/17/18 Narrative H&P: Pt is a 52 yo aam with h/o esrd presenting for screening colonoscopy. no new gi complaints; denies prior colonoscopy. - History H&P: obtained from office Past Medical History: ESRD Past Surgical History: Other (no changes) Social history: no significant social history - Allergies and Medications Current Medications: Allergies No Known Allergies Allergy (Verified 01/15/18 15:21) Home Medications Medication Instructions Recorded Confirmed Last Taken Type Aspirin 325 mg PO QDAY #30 tablet 10/20/17 08/17/18 08/15/18 Rx AtorvaSTATin [Lipitor] 80 mg PO QHS #30 tablet 10/20/17 08/17/18 08/15/18 Rx Carvedilol [Coreg] 25 mg PO BID #60 tablet 10/20/17 08/17/18 08/17/18 Rx Furosemide [Lasix TAB] 20 mg PO QDAY #30 tablet 10/20/17 08/17/18 08/15/18 Rx amLODIPine [Norvasc] 10 mg PO DAILY #30 tablet 10/20/17 08/17/18 08/17/18 Rx hydrALAZINE [Apresoline TAB] 100 mg PO BID #30 tablet 10/20/17 08/17/18 08/17/18 Rx Calcium Acetate [Phoslo] 667 mg PO TIDWM #60 capsule 01/23/18 08/17/18 08/15/18 Rx Famotidine [Pepcid] 10 mg PO BID #20 tablet 01/23/18 08/17/18 08/15/18 Rx Imdur ER 30 mg PO DAILY 08/17/18 08/17/18 08/17/18 History Active Medications Sodium Chloride (Nacl 0.9% 1000 Ml) 1,000 mls @ 50 mls/hr IV DIRECT BRITT Last Admin: 08/17/18 10:24 Dose: 50 mls/hr Documented by: - Physical exam General appearance: no acute distress Lungs: Clear to auscultation Heart: Regular rate, Normal S1, Normal S2 Gastrointestinal: normal - Brief post op/procedure progress note Date of procedure: 08/17/18 Pre-op diagnosis: Screening for colon cancer Post-op diagnosis: other (small cecal polyp) Procedure: Colonoscopy with biopsy Anesthesia: MAC Findings: small colon polyp removed with biopsy Surgeon: CELINA HERNÁNDEZ Estimated blood loss: minimal Pathology: list (Cecal polyp) Specimen disposition: to lab - Disposition Condition at discharge: Good Disposition: DC-01 TO HOME OR SELFCARE Short Stay Discharge Plan Follow up with: DORIS ROWLEY [Other] - 7 Days
--- NOTE | 2018-08-17 12:32 | Operative Report ---
Operative Report Operative Report: Colonoscopy Procedure Note with Biopsy Date of procedure: 08/17/2018 Endoscopist: Fernando Lay Pre-op diagnosis: Screening for colon cancer Post-op diagnosis: small colon polyp Anesthesia: MAC Complications: No immediate complications Estimated blood loss: minimal Procedure: After consent was obtained, the patient was placed in the left lateral decubitus position. The fujinon colonoscope was inserted into the patient's rectum under direct vision, and advanced to the cecum without difficulty. The patient tolerated the procedure well. The views of the mucosa were good. The quality of prep was good. The patient's vital signs were monitored continuously throughout the procedure. Findings: There was an ~2 mm sessile polyp in the cecum. The polyp was removed with cold biopsy forceps. Otherwise, the colon appeared normal. Impression: 1. Small colon polyp removed with cold biopsy forceps. Otherwise, unremarkable colonoscopy. Recommendations: -repeat colonoscopy in 5 years -follow up pathology
[2018-08-17 14:23] VITALS: BP 106/64
== END 2018-08-17 09:32 | disposition home or self-care (01) ==
LOC: GIO 09:31
PROVIDERS: ATTEND Internal Medicine Gastroenterology
DX: Z12.11 Encounter for screening for malignant neoplasm of colon (principal); D12.0 Benign neoplasm of cecum; I13.2 Hypertensive heart and chronic kidney disease with heart failure and with stage 5 chronic kidney disease, or end stage renal disease; N18.6 End stage renal disease; I50.9 Heart failure, unspecified; E78.5 Hyperlipidemia, unspecified; E66.9 Obesity, unspecified; I25.10 Atherosclerotic heart disease of native coronary artery without angina pectoris; E78.00 Pure hypercholesterolemia, unspecified; Z90.49 Acquired absence of other specified parts of digestive tract; Z99.2 Dependence on renal dialysis; Z79.899 Other long term (current) drug therapy; Z79.82 Long term (current) use of aspirin; Z68.32 Body mass index [BMI] 32.0-32.9, adult; Z98.890 Other specified postprocedural states
CPT/HCPCS: 36415; 45380; 84132; 88305; J2250; J2704; J7030; J3010